=== PATIENT | female | born 1955 | race Caucasian/White ===

== ENCOUNTER 2023-10-25 12:57 | Outpatient (AMB) | payer MEDICARE, SELFPAY ==
[2023-10-25 13:15] VITALS: BP 144/74; PULSE 70; O2SAT 96; BMI 25.0
--- NOTE | 2023-10-25 13:15 | A.OFFVIS_ITS ---
Intake Vital Signs 10/25/23 13:15 Height 5 ft Weight 127 lb 13.89 oz BMI 25.0 BP 144/74 H Blood Pressure Location Lt brachial Position Sitting Pulse 70 Pulse Source Pulse Oximeter Pulse Oximetry (%) 96 Oxygen Delivery Method Room Air Intake Visit Reasons: Cough Allergies No Known Allergies Allergy (Verified 10/25/23 13:18) HPI HPI Comments History of Present Illness Details The patient is here for pulmonary evaluation. The patient is a 68-year-old woman who presents with a chronic cough. The patient states that about 15 years ago when she was living in [place] she was diagnosed with pneumonia. At that time she was having significant respiratory complaints. Ultimately she was treated and had a repeat chest x-ray demonstrating resolution of the pneumonia per the report of the patient. However although her symptoms were better in the actually was better she continued to have a persistent cough. The cough seemed persistent and sometimes would have coughing spells which were be very dramatic. Sometimes she does expectorate specially in the morning. When she does expectorate she notices that the phlegm is thick tenacious sticky and clear. Denies any hemoptysis or denies any color. The patient now co ntinues to have the same complaints and that with the pandemic she is concerned because of her coughing spells and being in public. She has been evaluated by ENT. She did have allergy testing done without any significant findings for upper airway cough syndrome or allergies that she is aware of. She also tried a month of PPI for reflux related cough. The patient did use an inhaler back when she developed pneumonia and that was only briefly and she has not using inhalers since. on examination she does have some limitations during the expiratory phase seems to be more of a upper airway wheeze. Will start with pulmonary function studies and a chest x-ray. If her x-rays abnormal or if it is nondiagnostic the patient will require a CT scan of the chest. In addition to that because of the extent of her cough in the upper airway component to her wheezing could consider a bronchoscopy in the near future. For now will start her on empiric inhalers with inhaled cortical steroids and a long-acting beta agonist in addition to cough suppressants. [facility] Medical History (Updated 10/25/23 @ 22:09 by Poncho Wilson MD) Wheezing Chronic cough Social History (Updated 10/25/23 @ 13:20 by Deborah Styles [facility]) Patient Tobacco Use Status: Never used Tobacco Second Hand Smoke Exposure: No Review of Systems Const Denies fever(s) Eyes Reports no additional complaints ENT Denies change in voice Card Denies chest pain Resp Reports chest congestion and Reports cough GI Reports no additional complaints Reports urinary incontinence Musc Reports no additional complaints Skin/Breast Denies rash Neuro Reports no additional complaints Barrie/Lymph Denies lymphadenopathy Aller/Immun Denies seasonal rhinorrhea Physical Exam Vital Signs: Last Vital Signs Pulse 70 10/25/23 13:15 BP 144/74 H 10/25/23 13:15 Pulse Ox 96 10/25/23 13:15 Oxygen Delivery Method Room Air 10/25/23 13:15 BMI result Body Mass Index 25.0 Const General: comfortable HEENT Head: Yes normocephalic Neck Neck: Yes supple Chest Chest palpation & inspection: normal inspection of the chest Resp Effort & Inspection: Actively coughing Quality: actively coughing Auscultation: wheezes upper bilaterally and diminished lung sounds Cardio Heart sounds: S1 normal heart sound present and S2 normal heart sound present GI Palpation (GI): Soft to palpation Skin General skin exam: no rashes or lesions noted Extrem General: Yes no clubbing, cyanosis or edema Assessment & Plan Assessment & Plan (1) Chronic cough: Code(s): R05.3 - Chronic cough (2) Wheezing: Comment: upper airway Code(s): R06.2 - Wheezing Plan start Symbicort cough suppresant benzonates CXR, consider CT chest PFTs consider barium swallow Consider bronchoscopy if no better Orders: Orders XR chest 2V Today R05.3 - Chronic cough PFT pulmonary function test Today R05.3 - Chronic cough Medications: New codeine-guaifenesin 10-100 mg/5 mL 10 mL PO Q6H 10 days PRN 300 mL 0RF cough budesonide-formoterol 160-4.5 mcg/actuation (Symbicort) 2 puffs inhalation BID 30 days 10.2 grams 11RF J44.89 - Other specified chronic obstructive pulmonary disease benzonatate 200 mg PO BID 30 days PRN 30 caps 4RF cough Coding Level of Care Code New Pt Level 4 (61892) Diagnoses Chronic cough R05.3 Wheezing R06.2 Time Spent (min) 38
== END 2023-10-25 13:56 | disposition home or self-care (01) ==
PROVIDERS: PCP Family Medicine; Referring Provider Family Medicine; Visit Provider Hospitalist
DX: R05.3 Chronic cough (principal); R06.2 Wheezing
CPT/HCPCS: 99204

== ENCOUNTER 2023-10-25 12:57 | Outpatient (REF) | payer MEDICARE, SELFPAY ==
--- NOTE | ~2023-10-25 | XR_ITS ---
EXAMINATION: XR CHEST CLINICAL INFORMATION: Chronic cough COMPARISON: None available. TECHNIQUE: 2 views of the chest were obtained. FINDINGS: Cardiomediastinal silhouette is normal. Lungs are hyperexpanded with flattening of the diaphragms. Mild, chronic-appearing reticular markings. No consolidation, pleural effusion or pneumothorax. No acute osseous abnormalities. XR/XR chest 2V IMPRESSION: No acute cardiopulmonary process. Hyperexpanded lungs suggesting underlying COPD.
== END 2023-10-25 12:58 | disposition home or self-care (01) ==
LOC: HO.XRAY 12:57
PROVIDERS: PCP Family Medicine; Referring Provider Family Medicine; Visit Provider Hospitalist
DX: R05.3 Chronic cough (principal); R06.2 Wheezing
CPT/HCPCS: 71046; 99202

== ENCOUNTER 2023-10-29 08:00 | Outpatient (REF) | payer MEDICARE, SELFPAY ==
--- NOTE | 2023-10-29 14:43 | PFT_ITS ---
Flows: FEV1: 102 % of predicted at 1.93 L FVC: 116 % of predicted at 2.85 L FEV1/FVC: 69 % Bronchodilator response: Absent Volumes: Total lung capacity: 98 % of predicted at 4.21 L Residual volume: 83 % of predicted at 1.40 L Slow vital capacity: 107 % of predicted at 2.81 L Expiratory reserve volume: 142 % of predicted at 0.85 L Diffusion capacity: Normal Impression: Mild obstructive ventilatory defect with no bronchodilator response. MTDD
== END 2023-10-29 08:01 | disposition home or self-care (01) ==
LOC: HO.RESP 08:00
PROVIDERS: PCP Family Medicine; Visit Provider Hospitalist
DX: R05.3 Chronic cough (principal)
CPT/HCPCS: 94010; 94727; 94729

== ENCOUNTER → 2023-10-29 14:43 | Outpatient (BNV) | payer MEDICARE, SELFPAY | PROVIDERS: PCP Family Medicine; Visit Provider Internal Medicine Pulmonary Disease | DX: R05.9 Cough, unspecified (principal) | CPT/HCPCS: 94060; 94727; 94729 ==

== ENCOUNTER 2023-11-29 14:00 | Outpatient (AMB) | payer MEDICARE, SELFPAY ==
[2023-11-29 14:11] VITALS: PULSE 71; O2SAT 98; BMI 24.8
--- NOTE | 2023-11-29 14:11 | A.OFFVIS_ITS ---
Intake Vital Signs 11/29/23 14:11 Height 5 ft Weight 127 lb BMI 24.8 Pulse 71 Pulse Source Pulse Oximeter Pulse Oximetry (%) 98 Oxygen Delivery Method Room Air Intake Visit Reasons: Cough Intern Architect Required: No Allergies No Known Allergies Allergy (Verified 11/29/23 14:13) HPI HPI Comments History of Present Illness Details The patient is a 68-year-old woman who presents with a chronic cough. The patient states that about 15 years ago when she was living in [place] she was diagnosed with pneumonia. At that time she was having significant respiratory complaints. Ultimately she was treated and had a repeat chest x-ray demonstrating resolution of the pneumonia per the report of the patient. However although her symptoms were better in the actually was better she continued to have a persistent cough. The cough seemed persistent and sometimes would have coughing spells which were be very dramatic. Sometimes she does expectorate specially in the morning. When she does expectorate she notices that the phlegm is thick tenacious sticky and clear. Denies any hemoptysis or denies any color. The patient now continues to have the same complaints and that with the pandemic she is concerned because of her coughing spells and being in public. She has been evaluated by ENT. She did have allergy testing done without any significant findings for upper airway cough syndrome or allergies that she is aware of. She also tried a month of PPI for reflux related cough. The patient did use an inhaler back when she developed pneumonia and that was only briefly and she has not using inhalers since. on examination she does have some limitations during the expiratory phase seems to be more of a upper airway wheeze. Will start with pulmonary function studies and a chest x-ray. If her x-rays abnormal or if it is nondiagnostic the patient will require a CT scan of the chest. In addition to that because of the extent of her cough in the upper airway component to her wheezing could consider a bronchoscopy in the near future. For now will start her on empiric inhalers with inhaled cortical steroids and a long-acting beta agonist in addition to cough suppressants. 11/29/2023 the patient is here for a pulmonary follow-up visit. Overall she has doing a little Better. The patient states that the Symbicort has been helpful with wheezing. She is also getting better rest at night with the cough syrup. Ali she is getting some improvement. Although she still has significant productive cough chest congestion typically in the morning. Moderate severity. We did look at her x-ray and she does have some changes consistent with hyperinflation and also some haziness over the right infrahilar area with some silhouetting of the right heart border suggesting component of airspace disease. In addition to that blunting of the left recess. Her PFTs demonstrate a mild obstruction. Therefore, will request a CT scan to better address the abnormal chest x-ray. In the meantime the patient will continue with current respiratory therapy. I did give her a sputum cup in order to try to get a sputum sample. We also talked about potentially considering a bronchoscopy for better evaluation of the airways and deep cultures. Will decide that based on her re sults of the CT scan. In the meantime we talked about sleeping with the head of bed elevated because potentially reflux related cough. She will look into getting risers for the head of the bed. [facility] Medical History (Updated 11/29/23 @ 21:54 by Poncho Wilson MD) Asthma-COPD overlap syndrome Standard chest x-ray abnormal Chronic bronchitis Wheezing Chronic cough Social History (Updated 10/25/23 @ 13:20 by Deborah Styles CMA) Patient Tobacco Use Status: Never used Tobacco Second Hand Smoke Exposure: No Review of Systems Const Denies fever(s) Eyes Reports no additional complaints ENT Denies change in voice Card Denies chest pain Resp Reports chest congestion and Reports cough GI Reports no additional complaints Reports urinary incontinence Musc Reports no additional complaints Skin/Breast Denies rash Neuro Reports no additional complaints Barrie/Lymph Denies lymphadenopathy Aller/Immun Denies seasonal rhinorrhea Physical Exam Vital Signs: Last Vital Signs Pulse 71 11/29/23 14:11 Pulse Ox 98 11/29/23 14:11 Oxygen Delivery Method Room Air 11/29/23 14:11 BMI result Body Mass Index 24.8 Const General: comfortable HEENT Head: Yes normocephalic Neck Neck: Yes supple Chest Chest palpation & inspection: normal inspection of the chest Resp Effort & Inspection: Actively coughing Quality: actively coughing Auscultation: no wheezes and diminished lung sounds Cardio Heart sounds: S1 normal heart sound present and S2 normal heart sound present GI Palpation (GI): Soft to palpation Skin General skin exam: no rashes or lesions noted Extrem General: Yes no clubbing, cyanosis or edema Assessment & Plan Assessment & Plan (1) Chronic cough: Code(s): R05.3 - Chronic cough (2) Standard chest x-ray abnormal: Code(s): R93.89 - Abnormal findings on diagnostic imaging of other specified body structures (3) Asthma-COPD overlap syndrome: Code(s): J44.89 - Other specified chronic obstructive pulmonary disease (4) Chronic bronchitis: Code(s): J42 - Unspecified chronic bronchitis Qualifiers: Chronic bronchitis type: mucopurulent Qualified Code(s): J41.1 - Mucopurulent chronic bronchitis Plan continue Symbicort cough suppresant benzonates CT chest sleep with HOB elevated, risers bloodwork and sputum cx consider barium swallow Consider bronchoscopy if no better F/U 2 months Orders: Orders Complete Blood Count Auto Diff Today J42 - Unspecified chronic bronchitis Immunoglobulin G Subclasses Today J42 - Unspecified chronic bronchitis Immunoglobulin E Today J42 - Unspecified chronic bronchitis Sputum Cult + Gram stain Today J42 - Unspecified chronic bronchitis GEORGE Reflex Titer and Pattern Today J42 - Unspecified chronic bronchitis Acid-fast Culture + Smear Today J42 - Unspecified chronic bronchitis CT chest wo IV con Today J42 - Unspecified chronic bronchitis, R05.3 - Chronic cough, R93.89 - Abnormal findings on diagnostic imaging of other specified body structures Immunoglobulins,IgG IgA IgM Today J42 - Unspecified chronic bronchitis Erythrocyte Sedimentation Rate Today J42 - Unspecified chronic bronchitis Medications: Refilled codeine-guaifenesin 10-100 mg/5 mL 10 mL PO Q6H PRN 300 mL 0RF cough 10 days Coding Level of Care Code Est Pt Level 4 (44699) Diagnoses Chronic cough R05.3 Standard chest x-ray abnormal R93.89 Asthma-COPD overlap syndrome J44.89 Mucopurulent chronic bronchitis J41.1 Chronic bronchitis type: mucopurulent Time Spent (min) 18
== END 2023-11-29 14:39 | disposition home or self-care (01) ==
PROVIDERS: PCP Family Medicine; Visit Provider Hospitalist
DX: R05.3 Chronic cough (principal); R93.89 Abnormal findings on diagnostic imaging of other specified body structures; J44.89 Other specified chronic obstructive pulmonary disease; J41.1 Mucopurulent chronic bronchitis
CPT/HCPCS: 99214

== ENCOUNTER → 2023-11-29 14:00 | Outpatient (BNVA) | payer MEDICARE, SELFPAY | PROVIDERS: PCP Family Medicine; Visit Provider Hospitalist | DX: R05.3 Chronic cough (principal); R93.89 Abnormal findings on diagnostic imaging of other specified body structures; J44.89 Other specified chronic obstructive pulmonary disease; J41.1 Mucopurulent chronic bronchitis | CPT/HCPCS: 99212 ==

== ENCOUNTER 2023-12-02 09:51 | Outpatient (REF) | payer MEDICARE, SELFPAY ==
[2023-12-02 10:15] LABS: MANUAL DIFF FLAG NO
[2023-12-02 10:49] LABS: Basophils Percent Auto 0.7 % (0-2); Eosinophils Absolute Auto 0.1 X10*3/uL (0.0-0.4); Eosinophils Percent Auto 2.3 % (0-4); Hematocrit 43.7 % (37.0-47.0); Hemoglobin 14.9 g/dl (12.0-16.0); Imm Gran Abs Auto 0.01 X10*3/uL (0.00-0.03); Imm Gran Pct Auto 0.2 % (0.0-0.4); Lymphocytes Absolute Auto 1.7 X10*3/uL (1.2-4.9); Lymphocytes Percent Auto 27.3 % (20-40); Mean Corpuscular HGB Conc 34.1 g/dl (31.0-35.0); Mean Corpuscular Volume 85.2 fL (80.0-98.0); Mean Platelet Volume 9.7 fL (9.4-12.3); Monocytes Absolute Auto 0.4 X10*3/uL (0.1-1.2); Monocytes Percent Auto 7.2 % (2-11); Neutrophils Absolute Auto 3.8 x10*3/uL (2.0-8.3); Neutrophils Percent Auto 62.3 % (45-73); Platelet Count 292 X10*3/uL (160-400); Red Blood Count 5.13 X10*6/uL (4.20-5.50); Red Cell Distribution Width 13.1 % (11.0-16.0); White Blood Count 6.1 X10*3/uL (4.8-10.8)
[2023-12-02 11:39] LABS: Erythrocyte Sedimentation Rate 13 MM/HR (0-20)
[2023-12-05 14:58] LABS: Immunoglobulin G Subclass 1 491 mg/dL (382-929); Immunoglobulin G Subclass 2 196 mg/dL (241-700); Immunoglobulin G Subclass 3 31 mg/dL (22-178); Immunoglobulin G Subclass 4 57.1 mg/dL (4-86); Immunoglobulin G Total 840 mg/dL (600-1540)
[2023-12-05 19:39] LABS: Immunoglobulin E 22 kU/L (<OR=114)
[2023-12-05 22:58] LABS: IgA 108 mg/dL (70-320); IgG 974 mg/dL (600-1540); IgM 133 mg/dL (50-300)
[2023-12-09 12:28] LABS: Anti Nuclear Antibody Screen NEGATIVE (NEGATIVE)
== END 2023-12-02 09:52 | disposition home or self-care (01) ==
LOC: HO.LAB 09:51
PROVIDERS: Visit Provider Hospitalist
DX: J42 Unspecified chronic bronchitis (principal)
CPT/HCPCS: 36415; 82784; 82785; 85025; 85652; 86038; 87070; 87116; 87205; 87206

== ENCOUNTER 2023-12-07 | Outpatient (REF) | payer MEDICARE, SELFPAY | END 2023-12-07 00:01 | disposition home or self-care (01) | LOC: HO.LNP | PROVIDERS: Visit Provider Hospitalist | DX: J41.1 Mucopurulent chronic bronchitis (principal) | CPT/HCPCS: 87116; 87206 ==

== ENCOUNTER 2023-12-27 07:22 | Outpatient (REF) | payer MEDICARE, SELFPAY ==
--- NOTE | ~2023-12-27 | CT_ITS ---
EXAMINATION: CT CHEST WITHOUT CONTRAST CLINICAL INFORMATION: Chronic cough/bronchitis COMPARISON: Chest x-ray 10/25/2023 TECHNIQUE: Multidetector volumetric CT imaging of the chest was done. Axial MIP volume rendering provided. Sagittal and coronal reformatted images were obtained. This CT examination was performed using dose optimization techniques as appropriate, variously including the following: *Automated exposure control *Adjustment of mA and/or kV according to patient size (this includes techniques or standardized protocols for targeted exams where dose is matched to indication/reason for exam; i.e. extremities or head) *Use of iterative reconstruction technique DLP: 95 mGy-cm FINDINGS: Central airways are patent. Lungs are well aerated. There is some mild lingular and right middle lobe atelectasis versus scarring. Some minimal dependent atelectasis is also appreciated. There is no lobar consolidation present. No pleural effusion or pneumothorax. No suspicious pulmonary nodules. The heart is normal in size. There is no pericardial effusion. No appreciable coronary artery calcifications. Normal caliber thoracic aorta. No gross mediastinal or hilar lymphadenopathy appreciated on today's noncontrast imaging. No pathologically enlarged axillary lymph nodes. Visualized portions of the upper abdomen demonstrate a 1.8 cm left adrenal lesion, nonspecific. Mild diffuse degenerative changes of the spine. CT/CT chest wo IV con IMPRESSION: 1. Well aerated lungs without lobar consolidation, pleural effusion or pneumothorax. 2. 1.8 cm left adrenal lesion, nonspecific. This can be further evaluated with adrenal protocol CT imaging as clinically indicated. Fleischner guidelines were followed.
== END 2023-12-27 07:23 | disposition home or self-care (01) ==
LOC: HO.CT 07:22
PROVIDERS: PCP Family Medicine; Visit Provider Hospitalist
DX: R93.89 Abnormal findings on diagnostic imaging of other specified body structures (principal); R05.3 Chronic cough; J42 Unspecified chronic bronchitis
CPT/HCPCS: 71250

== ENCOUNTER 2024-01-19 10:31 | Outpatient (AMB) | payer MEDICARE, SELFPAY ==
--- NOTE | 2024-01-19 10:43 | MHC.OFFVIS ---
Intake Vital Signs 01/19/24 10:44 Height 5 ft Weight 127 lb BMI 24.8 BP 110/70 Blood Pressure Location Lt brachial Position Sitting Pulse 66 Pulse Source Pulse Oximeter Pulse Oximetry (%) 96 Oxygen Delivery Method Room Air Intake Visit Reasons: Cough Traffic Technician Required: No Allergies No Known Allergies Allergy (Verified 01/19/24 10:46) HPI HPI Comments History of Present Illness Details The patient is a 68-year-old woman who presents with a chronic cough. The patient states that about 15 years ago when she was living in [place] she was diagnosed with pneumonia. At that time she was having significant respiratory complaints. Ultimately she was treated and had a repeat chest x-ray demonstrating resolution of the pneumonia per the report of the patient. However although her symptoms were better in the actually was better she continued to have a persistent cough. The cough seemed persistent and sometimes would have coughing spells which were be very dramatic. Sometimes she does expectorate specially in the morning. When she does expectorate she notices that the phlegm is thick tenacious sticky and clear. Denies any hemoptysis or denies any color. The patient now continues to have the same complaints and that with the pandemic she is concerned because of her coughing spells and being in public. She has been evaluated by ENT. She did have allergy testing done without any significant findings for upper airway cough syndrome or allergies that she is aware of. She also tried a month of PPI for reflux related cough. The patient did use an inhaler back when she developed pneumonia and that was only briefly and she has not using inhalers since. on examination she does have some limitations during the expiratory phase seems to be more of a upper airway wheeze. Will start with pulmonary function studies and a chest x-ray. If her x-rays abnormal or if it is nondiagnostic the patient will require a CT scan of the chest. In addition to that because of the extent of her cough in the upper airway component to her wheezing could consider a bronchoscopy in the near future. For now will start her on empiric inhalers with inhaled cortical steroids and a long-acting beta agonist in addition to cough suppressants. 11/29/2023 the patient is here for a pulmonary follow-up visit. Overall she has doing a little Better. The patient states that the Symbicort has been helpful with wheezing. She is also getting better rest at night with the cough syrup. Ali she is getting some improvement. Although she still has significant productive cough chest congestion typically in the morning. Moderate severity. We did look at her x-ray and she does have some changes consistent with hyperinflation and also some haziness over the right infrahilar area with some silhouetting of the right heart border suggesting component of airspace disease. In addition to that blunting of the left recess. Her PFTs demonstrate a mild obstruction. Therefore, will request a CT scan to better address the abnormal chest x-ray. In the meantime the patient will continue with current respiratory therapy. I did give her a sputum cup in order to try to get a sputum sample. We also talked about potentially considering a bronchoscopy for better evaluation of the airways and deep cultures. Will decide that based on her results of the CT scan. In the meantime we talked about sleeping with the head of bed elevated because potentially reflux related cough. She will look into getting risers for the head of the bed. 01/19/2024 the patient is here for a pulmonary follow-up visit. She is still coughing. She is concerned because she has no better. Still having productive phlegm prickly whitish in color. Sometimes [place]. She did try the risers for the bad sleep elevated but is not making much difference. The Symbicort is partially helpful. She does complaint of some chest tightness. She did not have a great response to bronchodilators. She has never been a smoker although she appears to have mild degree of COPD. Definitely feels it. We did review her CT scan of the chest. 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 She is following up in [place] with the doctor there regarding both apparent periodic in the adrenal lesion. Though appeared to be beyond. The patient also had blood work which pretty reassuring. No significant eosinophilia and immune system to be reasonable. Her IgG subclass 2 is a little low but her total levels are good and should not be resulting in recurrent infections. The patient does have some atelectasis the right middle lobe and lingula suggesting the possibility of smoldering diseases though. At this point will try to do is optimize her respiratory therapy by adding Spiriva to her Symbicort. In addition to that we can also consider nebulizer in the future to see if that provides better chest PT and mucus clearance. Also be reasonable to try her on azithromycin for 6-8 weeks to see if we can help with chronic bronchitis. I did provide her with a sputum cup in order for her to bring up sputum sample. And will consider bronchoscopy if no better. [facility] Medical History (Updated 11/29/23 @ 21:54 by Poncho Wilson MD) Asthma-COPD overlap syndrome Standard chest x-ray abnormal Chronic bronchitis Wheezing Chronic cough Social History (Updated 10/25/23 @ 13:20 by Deborah Styles CMA) Patient Tobacco Use Status: Never used Tobacco Second Hand Smoke Exposure: No Review of Systems Const Denies fever(s) Eyes Reports no additional complaints ENT Denies change in voice Card Denies chest pain Resp Reports chest congestion and Reports cough GI Reports no additional complaints Reports urinary incontinence Musc Reports no additional complaints Skin/Breast Denies rash Neuro Reports no additional complaints Barrie/Lymph Denies lymphadenopathy Aller/Immun Denies seasonal rhinorrhea Physical Exam Vital Signs: Last Vital Signs Pulse 66 01/19/24 10:44 BP 110/70 01/19/24 10:44 Pulse Ox 96 01/19/24 10:44 Oxygen Delivery Method Room Air 01/19/24 10:44 BMI result Body Mass Index 24.8 Const General: comfortable HEENT Head: Yes normocephalic Neck Neck: Yes supple Chest Chest palpation & inspection: normal inspection of the chest Resp Effort & Inspection: Actively coughing Quality: actively coughing and prolonged expiratory phase Auscultation: wheezes and diminished lung sounds Cardio Heart sounds: S1 normal heart sound present and S2 normal heart sound present GI Palpation (GI): Soft to palpation Skin General skin exam: no rashes or lesions noted Extrem General: Yes no clubbing, cyanosis or edema Assessment & Plan Assessment & Plan (1) Chronic cough: Code(s): R05.3 - Chronic cough (2) Standard chest x-ray abnormal: Code(s): R93.89 - Abnormal findings on diagnostic imaging of other specified body structures (3) Asthma-COPD overlap syndrome: Code(s): J44.89 - Other specified chronic obstructive pulmonary disease (4) Chronic bronchitis: Code(s): J42 - Unspecified chronic bronchitis Qualifiers: Chronic bronchitis type: mucopurulent Qualified Code(s): J41.1 - Mucopurulent chronic bronchitis Plan continue Symbicort start Spiriva start Azithromycin MWF x 6-8 weeks cough suppresant benzonates sleep with HOB elevated, risers sputum cx consider barium swallow Consider bronchoscopy if no better F/U 2-3 months Orders: Orders Sputum Cult + Gram stain Today J41.1 - Mucopurulent chronic bronchitis Acid-fast Culture + Smear Today J41.1 - Mucopurulent chronic bronchitis Medications: New azithromycin Take 1 tablet on Tuesday/Tuesday/Tuesday 250 mg PO 3XW 28 days 12 tabs 1RF K21.9 - Gastro-esophageal reflux disease without esophagitis tiotropium bromide 2.5 mcg/actuation (Spiriva Respimat) 2 puffs inhalation DAILY 30 days 1 ea 11RF Coding Level of Care Code Est Pt Level 4 (14589) Diagnoses Chronic cough R05.3 Standard chest x-ray abnormal R93.89 Asthma-COPD overlap syndrome J44.89 Mucopurulent chronic bronchitis J41.1 Chronic bronchitis type: mucopurulent Time Spent (min) 18
[2024-01-19 10:44] VITALS: BP 110/70; PULSE 66; O2SAT 96; BMI 24.8
== END 2024-01-19 11:16 | disposition home or self-care (01) ==
PROVIDERS: PCP Family Medicine; Visit Provider Hospitalist
DX: R05.3 Chronic cough (principal); R93.89 Abnormal findings on diagnostic imaging of other specified body structures; J44.89 Other specified chronic obstructive pulmonary disease
CPT/HCPCS: 99214

== ENCOUNTER → 2024-01-19 10:31 | Outpatient (BNVA) | payer MEDICARE, SELFPAY | PROVIDERS: PCP Family Medicine; Visit Provider Hospitalist | DX: J44.89 Other specified chronic obstructive pulmonary disease (principal); R05.3 Chronic cough; R93.89 Abnormal findings on diagnostic imaging of other specified body structures; J41.1 Mucopurulent chronic bronchitis | CPT/HCPCS: 99212 ==

== ENCOUNTER 2024-05-01 09:47 | Outpatient (AMB) | payer MEDICARE, SELFPAY ==
--- NOTE | 2024-05-01 10:10 | A.OFFVIS_ITS ---
Vital Signs 05/01/24 10:11 Height 5 ft Weight 125 lb BMI 24.4 BP 118/70 Blood Pressure Location Lt brachial Position Sitting Pulse 71 Pulse Source Pulse Oximeter Pulse Oximetry (%) 97 Oxygen Delivery Method Room Air Intake Visit Reasons: Cough Home Health Care Provider Required: No Allergies No Known Allergies Allergy (Verified 05/01/24 10:13) HPI Comments Details: The patient is a 68-year-old woman who presents with a chronic cough. The patient states that about 15 years ago when she was living in [place] she was diagnosed with pneumonia. At that time she was having significant respiratory complaints. Ultimately she was treated and had a repeat chest x-ray demonstrating resolution of the pneumonia per the report of the patient. However although her symptoms were better in the actually was better she continued to have a persistent cough. The cough seemed persistent and sometimes would have coughing spells which were be very dramatic. Sometimes she does expectorate specially in the morning. When she does expectorate she notices that the phlegm is thick tenacious sticky and clear. Denies any hemoptysis or denies any color. The patient now continues to have the same complaints and that with the pandemic she is concerned because of her coughing spells and being in public. She has been evaluated by ENT. She did have allergy testing done without any significant findings for upper airway cough syndrome or allergies that she is aware of. She also tried a month of PPI for reflux related cough. The patient did use an inhaler back when she developed pneumonia and that was only briefly and she has not using inhalers since. on examination she does have some limitations during the expiratory phase seems to be more of a upper airway wheeze. Will start with pulmonary function studies and a chest x-ray. If her x-rays abnormal or if it is nondiagnostic the patient will require a CT scan of the chest. In addition to that because of the extent of her cough in the upper airway component to her wheezing could consider a bronchoscopy in the near future. For now will start her on empiric inhalers with inhaled cortical steroids and a long-acting beta agonist in addition to cough suppressants. 11/29/2023 the patient is here for a pulmonary follow-up visit. Overall she has doing a little Better. The patient states that the Symbicort has been helpful with wheezing. She is also getting better rest at night with the cough syrup. Ali she is getting some improvement. Although she still has significant productive cough chest congestion typically in the morning. Moderate severity. We did look at her x-ray and she does have some changes consistent with hyperinflation and also some haziness over the right infrahilar area with some silhouetting of the right heart border suggesting component of airspace disease. In addition to that blunting of the left recess. Her PFTs demonstrate a mild obstruction. Therefore, will request a CT scan to better address the abnormal chest x-ray. In the meantime the patient will continue with current respiratory therapy. I did give her a sputum cup in order to try to get a sputum sample. We also talked about potentially considering a bronchoscopy for better evaluation of the airways and deep cultures. Will decide that based on her results of the CT scan. In the meantime we talked about sleeping with the head of bed elevated because potentially reflux related cough. She will look into getting risers for the head of the bed. 01/19/2024 the patient is here for a pulmonary follow-up visit. She is still coughing. She is concerned because she has no better. Still having productive phlegm prickly whitish in color. Sometimes [place]. She did try the risers for the bad sleep elevated but is not making much difference. The Symbicort is partially helpful. She does complaint of some chest tightness. She did not have a great response to bronchodilators. She has never been a smoker although she appears to have mild degree of COPD. Definitely feels it. We did review her CT scan of the chest. 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 She is following up in [place] with the doctor there regarding both apparent periodic in the adrenal lesion. Though appeared to be beyond. The patient also had blood work which pretty reassuring. No significant eosinophilia and immune system to be reasonable. Her IgG subclass 2 is a little low but her total levels are good and should not be resulting in recurrent infections. The patient does have some atelectasis the right middle lobe and lingula suggesting the possibility of smoldering diseases though. At this point will try to do is optimize her respiratory therapy by adding Spiriva to her Symbicort. In addition to that we can also consider nebulizer in the future to see if that provides better chest PT and mucus clearance. Also be reasonable to try her on azithromycin for 6-8 weeks to see if we can help with chronic bronchitis. I did provide her with a sputum cup in order for her to bring up sputum sample. And will consider bronchoscopy if no better. 05/01/2024 the patient is here for a pulmonary follow-up visit. Overall she is doing better. This combination has Symbicort and Spiriva have been helping her. The secretions in the lungs have subsided significantly. Although she still having coughing episodes moderate severity. Typically worse at nighttime. She has a hard time with shortness of breath and chest tightness and pressure sensation. Which is moderate severity. That is usually when she coughs and she relieves some of the pressure. Her CT scan of the chest that she had in the spring 2023 was reassuring without any evidence of any mosaic pattern. Still though she does have some wheezing on examination. Will plan to perform bronchoscopy to better assess the airways. Look for any obstructive physiology in addition to assessing for inflammation. The patient also be a candidate for Daliresp or potentially biologic therapy with test prior. Will do the bron choscopy and have him forward. PENDING SALE TO [facility] Medical History (Updated 11/29/23 @ 21:54 by Poncho Wilson MD) Asthma-COPD overlap syndrome Standard chest x-ray abnormal Chronic bronchitis Wheezing Chronic cough Social History (Updated 10/25/23 @ 13:20 by Deborah Styles CMA) Patient Tobacco Use Status: Never used Tobacco Second Hand Smoke Exposure: No Review of Systems Const Denies fever(s) Eyes Reports no additional complaints ENT Denies change in voice Card Denies chest pain Resp Reports chest congestion and Reports cough GI Reports no additional complaints Reports urinary incontinence Musc Reports no additional complaints Skin/Breast Denies rash Neuro Reports no additional complaints Barrie/Lymph Denies lymphadenopathy Aller/Immun Denies seasonal rhinorrhea Physical Exam Vital Signs: Last Vital Signs Pulse 71 05/01/24 10:11 BP 118/70 05/01/24 10:11 Pulse Ox 97 05/01/24 10:11 Oxygen Delivery Method Room Air 05/01/24 10:11 BMI result Body Mass Index 24.4 Const General: comfortable HEENT Head: Yes normocephalic Neck Neck: Yes supple Chest Chest palpation & inspection: normal inspection of the chest Resp Effort & Inspection: Actively coughing Quality: actively coughing and prolonged expiratory phase Auscultation: wheezes and diminished lung sounds Cardio Heart sounds: S1 normal heart sound present and S2 normal heart sound present GI Palpation (GI): Soft to palpation Skin General skin exam: no rashes or lesions noted Extrem General: Yes no clubbing, cyanosis or edema Assessment & Plan Assessment & Plan (1) Chronic cough: Code(s): R05.3 - Chronic cough Category: Medical (2) Standard chest x-ray abnormal: Code(s): R93.89 - Abnormal findings on diagnostic imaging of other specified body structures Category: Medical (3) Asthma-COPD overlap syndrome: Code(s): J44.89 - Other specified chronic obstructive pulmonary disease Category: Medical (4) Chronic bronchitis: Code(s): J42 - Unspecified chronic bronchitis Category: Medical Qualifiers: Chronic bronchitis type: mucopurulent Qualified Code(s): J41.1 - Mucopurulent chronic bronchitis Plan continue Symbicort continue Spiriva stopped Azithromycin MWF x 6-8 weeks cough suppresant benzonates sleep with HOB elevated, risers bronchoscopy to assess airway inflammation and obstruction consider barium swallow F/U 2-3 months Coding Level of Care Code Est Pt Level 4 (75075) Diagnoses Chronic cough R05.3 Standard chest x-ray abnormal R93.89 Asthma-COPD overlap syndrome J44.89 Mucopurulent chronic bronchitis J41.1 Chronic bronchitis type: mucopurulent Time Spent (min) 16
[2024-05-01 10:11] VITALS: BP 118/70; PULSE 71; O2SAT 97; BMI 24.4
== END 2024-05-01 10:37 | disposition home or self-care (01) ==
PROVIDERS: PCP Family Medicine; Visit Provider Hospitalist
DX: R05.3 Chronic cough (principal); R93.89 Abnormal findings on diagnostic imaging of other specified body structures; J44.89 Other specified chronic obstructive pulmonary disease; J41.1 Mucopurulent chronic bronchitis
CPT/HCPCS: 99214

== ENCOUNTER → 2024-05-01 09:47 | Outpatient (BNVA) | payer MEDICARE, SELFPAY | PROVIDERS: PCP Family Medicine; Visit Provider Hospitalist | DX: R05.3 Chronic cough (principal); J41.1 Mucopurulent chronic bronchitis; J44.89 Other specified chronic obstructive pulmonary disease; R93.89 Abnormal findings on diagnostic imaging of other specified body structures | CPT/HCPCS: 99212 ==

== ENCOUNTER 2024-06-08 11:22 | Day surgery (SDC) | payer MEDICARE, SELFPAY ==
--- NOTE | 2024-06-07 10:12 | HO.ANESPROP2 ---
Documented by User: Oralia Epstein NP 06/07/24 10:12 HPI - Anesthesia Eval Consult details Narrative: 68yo F for Bronchoscopy Fiberoptic PMFSH Active Problems Active Problems: All Active Problems Asthma-COPD overlap syndrome (Acute) Standard chest x-ray abnormal (Acute) Chronic bronchitis (Acute) Wheezing (Acute) Chronic cough (Acute) Past Medical History Medical History Asthma-COPD overlap syndrome Standard chest x-ray abnormal Chronic bronchitis Wheezing Chronic cough Social History Social History Patient Tobacco Use Status: Never used Tobacco Second Hand Smoke Exposure: No Advance Directives: No Advance Directives Information Provided: Yes Meds Allergies Allergy/AdvReac Type Severity Reaction Status Date / Time No Known Allergies Allergy Verified 05/01/24 10:13 Home Medications ?Medication ?Instructions ?Recorded ?Confirmed ?Last Taken ?Type calcium carbonate 600 mg-vitamin 1 tab PO DAILY 10/25/23 Unknown History D3 10 mcg (400 unit) tablet methenamine hippurate 1 gram tablet 1 g PO BID 10/25/23 Unknown History simvastatin 20 mg tablet 20 mg PO BEDTIME 10/25/23 Unknown History rizatriptan 10 mg tablet mg PO PRN 05/01/24 Unknown History Assessment and Plan Assessment Anesthesia Assessment: Chart Reviewed Documented by User: Di Brennan MD 06/08/24 12:48 PMFSH Past Medical History Medical History Asthma-COPD overlap syndrome Standard chest x-ray abnormal Chronic bronchitis Wheezing Chronic cough Family History Family history of problems with anesthesia: No Surgical History History of Problems with Anesthesia: No Social History Social History Patient Tobacco Use Status: Never used Tobacco Second Hand Smoke Exposure: No Advance Directives: No Advance Directives Information Provided: Yes Meds Allergies Allergy/AdvReac Type Severity Reaction Status Date / Time No Known Allergies Allergy Verified 05/01/24 10:13 Home Medications ?Medication ?Instructions ?Recorded ?Confirmed ?Last Taken ?Type calcium carbonate 600 mg-vitamin 1 tab PO DAILY 10/25/23 Unknown History D3 10 mcg (400 unit) tablet methenamine hippurate 1 gram tablet 1 g PO BID 10/25/23 Unknown History simvastatin 20 mg tablet 20 mg PO BEDTIME 10/25/23 Unknown History rizatriptan 10 mg tablet mg PO PRN 05/01/24 Unknown History Exam Airway Mallampati Class: II TM Dist: >3cm Neck ROM: Full Heart: rrr Lungs: cta Assessment and Plan Assessment Anesthesia Assessment: Anesthesia Plan Discussed Final Anesthetic Review Family History of Problems with Anesthesia: No History of Problems with Anesthesia: No NPO: Yes ASA Class: II Final Preanesthetic Review: No Changes in Pt Med Stat, Meds/Allgs Chart Reviewed, Consent Obtained/Reviewed and Anes Risks/Benef Reviewed Patient Risk: Intermediate Procedure Risk: Low Anesthetic Plan Anesthetic Plan: GA Disposition: Standard PACU
--- NOTE | 2024-06-08 12:19 | MHC.SHP ---
Pre-Procedural Eval Section A - 24 Hr Update-Section A only Date of Service: 06/08/24 The patient is an INPATIENT: No Changes since office visit: No Cold of Flu in the past 2 weeks, No New Medical Problems, No Changes in Medication and No Patient answered all questions The patient has been examined within 24 hours of the surgical procedure. The History & Physical has been completed within 30 days and I have reviewed it.: Yes Section B - Complete if H&P > 30 days Chief Complaint: Chronic cough Allergies: Allergies Allergy/AdvReac Type Severity Reaction Status Date / Time No Known Allergies Allergy Verified 05/01/24 10:13 Plan I have reviewed the history and physical and performed a pertinent physical examination on my patient. No changes have occurred unless specified. Time Spent With Patient Time: Total time managing care of this patient today ____ minutes.
[2024-06-08 13:07] VITALS: BP 132/68; PULSE 70; RESP 12; TEMP 36.3; O2SAT 96; BMI 23.6
[2024-06-08] MEDS: Lactated Ringers 1,000 ML 100 ML IVCONT (13:19)
[2024-06-08 14:25] VITALS: BP 140/73; PULSE 85; RESP 16; TEMP 36.6; O2SAT 97
[2024-06-08 14:30] VITALS: BP 152/56; PULSE 97; RESP 20; O2SAT 97
[2024-06-08 14:35] VITALS: BP 149/72; PULSE 80; RESP 20; O2SAT 97
[2024-06-08 14:40] VITALS: BP 146/66; PULSE 78; RESP 20; O2SAT 97
[2024-06-08 14:55] VITALS: BP 141/91; PULSE 85; RESP 20; TEMP 37; O2SAT 94
[2024-06-08 18:45] LABS: Neutrophils Bronchial 1 %
[2024-06-08 18:46] LABS: Lymphocytes Bronchial 16 %; Other Bronchial 83 %
[2024-06-08 18:47] LABS: RBC Bronchial Washing 5 MM*3; WBC Bronchial Washing 6 MM*3
--- NOTE | 2024-06-12 08:13 | P.BOP_ITS ---
Brief Operative Note Date of Service: 06/08/24 Pre-op diagnosis: cough Post-op diagnosis: other (bronchomalecia) Procedure: bronchoscopy with BAL and washings Implants: Surgeon: Poncho Wilson MD Anesthesia: GLMA Was an Rep[employer] used for this Procedure?: No Estimated blood loss (mL): 0 Pathology: none sent Condition: stable Disposition: same day
--- NOTE | 2024-06-12 09:52 | OP_ITS ---
DATE OF SERVICE: 06/08/2024 SURGEON: Poncho Wilson MD PREOPERATIVE DIAGNOSIS: Chronic cough. POSTOPERATIVE DIAGNOSIS: Bronchomalacia. PROCEDURE PERFORMED: Bronchoscopy with BAL and washings. ESTIMATED BLOOD LOSS: COMPLICATIONS: ANESTHESIA: LMA. ASSISTANTS: None. SPECIMENS: DESCRIPTION OF PROCEDURE: After the patient was adequately sedated, LMA in place, a flexible digital bronchoscope was inserted to the LMA to the level of the larynx. The vocal cords were most symmetric with the midline and there was some other risk of micro aspirations. No lesions noted. After instilling additional lidocaine the bronchoscope was then passed to the vocal cords to the level of the trachea. Tracheal mucosa appeared normal. No evidence of any obstructions or compression of the airway, just some slight compression of the proximal trachea, but only about 20% to 25%. The bronchoscope was then navigated through the entire tracheobronchial tree that was examined up the subsegmental level. No evidence of any endobronchial lesions or masses. No evidence of any significant secretions. No bleeding although there was significant malacia of the airways primarily at the level of the distal left mainstem where there was complete obstruction of the left lower lobe airway. The patient had some degree of bronchomalacia through the right bronchi as well, left more than right. The bronchoscope was navigated to the right middle lobe where a bronchoalveolar lavage was completed with 50 mL of normal saline. The return was close to 25 mL. There were some mucous plugs present. The bronchoscope was then navigated to the entire tracheobronchial tree. Again, significant malacia noted in the lower lung zones. No evidence of any active bleeding. No evidence of any endobronchial lesions. Bronchial washings were collected bilaterally. The bronchoscope was then removed. No complications noted. Poncho Wilson MD MR/MODL / [id number]
== END 2024-06-08 15:31 | disposition home or self-care (01) ==
PROVIDERS: PCP Family Medicine; Visit Provider Hospitalist
PROC: 0BJ08ZZ Inspection of Tracheobronchial Tree, Via Natural or Artificial Opening Endoscopic (ICD-10-PCS; CPT 31622; principal; 2024-06-08 13:10)
DX: R05.3 Chronic cough (principal); J42 Unspecified chronic bronchitis; J98.09 Other diseases of bronchus, not elsewhere classified; J45.909 Unspecified asthma, uncomplicated; Z79.899 Other long term (current) drug therapy
CPT/HCPCS: 31624; 87070; 87077; 87116; 87185; 87205; 87206; 88112; 89051; J0171; J2405; J2704; J3010

== ENCOUNTER → 2024-06-08 11:22 | Outpatient (BNV) | payer MEDICARE, SELFPAY | PROVIDERS: PCP Family Medicine; Visit Provider Hospitalist | DX: R05.3 Chronic cough (principal); J98.09 Other diseases of bronchus, not elsewhere classified | CPT/HCPCS: 31624 ==

== ENCOUNTER 2024-06-29 10:40 | Outpatient (AMB) | payer MEDICARE, SELFPAY ==
--- NOTE | 2024-06-29 10:48 | MHC.OFFVIS ---
Vital Signs 06/29/24 10:50 Height 5 ft Weight 125 lb BMI 24.4 BP 126/70 Blood Pressure Location Lt brachial Position Sitting Pulse 62 Pulse Source Pulse Oximeter Pulse Oximetry (%) 98 Oxygen Delivery Method Room Air Intake Visit Reasons: Cough Chief Science Officer Required: No Allergies No Known Allergies Allergy (Verified 06/29/24 10:52) HPI Comments Details: The patient is a 68-year-old woman who presents with a chronic cough. The patient states that about 15 years ago when she was living in [place] she was diagnosed with pneumonia. At that time she was having significant respiratory complaints. Ultimately she was treated and had a repeat chest x-ray demonstrating resolution of the pneumonia per the report of the patient. However although her symptoms were better in the actually was better she continued to have a persistent cough. The cough seemed persistent and sometimes would have coughing spells which were be very dramatic. Sometimes she does expectorate specially in the morning. When she does expectorate she notices that the phlegm is thick tenacious sticky and clear. Denies any hemoptysis or denies any color. The patient now continues to have the same complaints and that with the pandemic she is concerned because of her coughing spells and being in public. She has been evaluated by ENT. She did have allergy testing done without any significant findings for upper airway cough syndrome or allergies that she is aware of. She also tried a month of PPI for reflux related cough. The patient did use an inhaler back when she developed pneumonia and that was only briefly and she has not using inhalers since. on examination she does have some limitations during the expiratory phase seems to be more of a upper airway wheeze. Will start with pulmonary function studies and a chest x-ray. If her x-rays abnormal or if it is nondiagnostic the patient will require a CT scan of the chest. In addition to that because of the extent of her cough in the upper airway component to her wheezing could consider a bronchoscopy in the near future. For now will start her on empiric inhalers with inhaled cortical steroids and a long-acting beta agonist in addition to cough suppressants. 11/29/2023 the patient is here for a pulmonary follow-up visit. Overall she has doing a little Better. The patient states that the Symbicort has been helpful with wheezing. She is also getting better rest at night with the cough syrup. Ali she is getting some improvement. Although she still has significant productive cough chest congestion typically in the morning. Moderate severity. We did look at her x-ray and she does have some changes consistent with hyperinflation and also some haziness over the right infrahilar area with some silhouetting of the right heart border suggesting component of airspace disease. In addition to that blunting of the left recess. Her PFTs demonstrate a mild obstruction. Therefore, will request a CT scan to better address the abnormal chest x-ray. In the meantime the patient will continue with current respiratory therapy. I did give her a sputum cup in order to try to get a sputum sample. We also talked about potentially considering a bronchoscopy for better evaluation of the airways and deep cultures. Will decide that based on her results of the CT scan. In the meantime we talked about sleeping with the head of bed elevated because potentially reflux related cough. She will look into getting risers for the head of the bed. 01/19/2024 the patient is here for a pulmonary follow-up visit. She is still coughing. She is concerned because she has no better. Still having productive phlegm prickly whitish in color. Sometimes [place]. She did try the risers for the bad sleep elevated but is not making much difference. The Symbicort is partially helpful. She does complaint of some chest tightness. She did not have a great response to bronchodilators. She has never been a smoker although she appears to have mild degree of COPD. Definitely feels it. We did review her CT scan of the chest. 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 She is following up in [place] with the doctor there regarding both apparent periodic in the adrenal lesion. Though appeared to be beyond. The patient also had blood work which pretty reassuring. No significant eosinophilia and immune system to be reasonable. Her IgG subclass 2 is a little low but her total levels are good and should not be resulting in recurrent infections. The patient does have some atelectasis the right middle lobe and lingula suggesting the possibility of smoldering diseases though. At this point will try to do is optimize her respiratory therapy by adding Spiriva to her Symbicort. In addition to that we can also consider nebulizer in the future to see if that provides better chest PT and mucus clearance. Also be reasonable to try her on azithromycin for 6-8 weeks to see if we can help with chronic bronchitis. I did provide her with a sputum cup in order for her to bring up sputum sample. And will consider bronchoscopy if no better. 05/01/2024 the patient is here for a pulmonary follow-up visit. Overall she is doing better. This combination has Symbicort and Spiriva have been helping her. The secretions in the lungs have subsided significantly. Although she still having coughing episodes moderate severity. Typically worse at nighttime. She has a hard time with shortness of breath and chest tightness and pressure sensation. Which is moderate severity. That is usually when she coughs and she relieves some of the pressure. Her CT scan of the chest that she had in the spring 2023 was reassuring without any evidence of any mosaic pattern. Still though she does have some wheezing on examination. Will plan to perform bronchoscopy to better assess the airways. Look for any obstructive physiology in addition to assessing for inflammation. The patient also be a candidate for Daliresp or potentially biologic therapy with test prior. Will do the bronchoscopy and have him forward. 06/29/2024 the patient is here for pulmonary follow-up visit. The patient is status post bronchoscopy. She tolerated the procedure well. I did review the results with her. We did have a video to look at. It appears that she does have some dynamic collapse of the left lower lobe. 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 It is dynamic in nature so does open up. We did talk about bed different mucus clearance. The patient did get an Acapella valve and therefore she can work on chest physical therapy. We also cultured Haemophilus parainfluenza she was treated with antibiotics for that. She is still completing a course. She continues with current respiratory therapy. She is going to continue with exercises to strengthen her lung capacity. [facility] Medical History (Updated 07/01/24 @ 20:39 by Poncho Wilson MD) Bronchomalacia Asthma-COPD overlap syndrome Standard chest x-ray abnormal Chronic bronchitis Wheezing Chronic cough Surgical History (Updated 06/08/24 @ 12:55 by Rhona Ba RN) H/O colonoscopy History of foot surgery History of tonsillectomy H/O bladder repair surgery H/O hemorrhoidectomy Hx of appendectomy Social History Are you a primary ocular care technologist to a significant other at home: No Do you presently have visiting nurse or other home services: No Patient Tobacco Use Status: Never used Tobacco Second Hand Smoke Exposure: No Review of Systems Const Denies fever(s) Eyes Reports no additional complaints ENT Denies change in voice Card Denies chest pain Resp Reports chest congestion and Reports cough GI Reports no additional complaints Reports urinary incontinence Musc Reports no additional complaints Skin/Breast Denies rash Neuro Reports no additional complaints Barrie/Lymph Denies lymphadenopathy Aller/Immun Denies seasonal rhinorrhea Physical Exam Vital Signs: Last Vital Signs Pulse 62 06/29/24 10:50 BP 126/70 06/29/24 10:50 Pulse Ox 98 06/29/24 10:50 Oxygen Delivery Method Room Air 06/29/24 10:50 BMI result Body Mass Index 24.4 Const General: comfortable HEENT Head: Yes normocephalic Neck Neck: Yes supple Chest Chest palpation & inspection: normal inspection of the chest Resp Effort & Inspection: Actively coughing Quality: actively coughing and prolonged expiratory phase Auscultation: wheezes and diminished lung sounds Cardio Heart sounds: S1 normal heart sound present and S2 normal heart sound present GI Palpation (GI): Soft to palpation Skin General skin exam: no rashes or lesions noted Extrem General: Yes no clubbing, cyanosis or edema Assessment & Plan Assessment & Plan (1) Chronic cough: Code(s): R05.3 - Chronic cough Category: Medical (2) Asthma-COPD overlap syndrome: Code(s): J44.89 - Other specified chronic obstructive pulmonary disease Category: Medical (3) Chronic bronchitis: Code(s): J42 - Unspecified chronic bronchitis Category: Medical Qualifiers: Chronic bronchitis type: mucopurulent Qualified Code(s): J41.1 - Mucopurulent chronic bronchitis (4) Bronchomalacia: Code(s): J98.09 - Other diseases of bronchus, not elsewhere classified Category: Medical Plan continue Symbicort continue Spiriva complete Azithromycin MWF Aerobika for chest physical therapy benzonates sleep with HOB elevated, risers consider barium swallow F/U 4-6 months Coding Level of Care Code Est Pt Level 4 (34693) Diagnoses Chronic cough R05.3 Asthma-COPD overlap syndrome J44.89 Mucopurulent chronic bronchitis J41.1 Chronic bronchitis type: mucopurulent Bronchomalacia J98.09 Time Spent (min) 17
[2024-06-29 10:50] VITALS: BP 126/70; PULSE 62; O2SAT 98; BMI 24.4
== END 2024-06-29 11:15 | disposition home or self-care (01) ==
PROVIDERS: PCP Family Medicine; Visit Provider Hospitalist
DX: J44.89 Other specified chronic obstructive pulmonary disease (principal); J98.09 Other diseases of bronchus, not elsewhere classified
CPT/HCPCS: 99214

== ENCOUNTER → 2024-06-29 10:40 | Outpatient (BNVA) | payer MEDICARE, SELFPAY | PROVIDERS: PCP Family Medicine; Visit Provider Hospitalist | DX: R05.3 Chronic cough (principal); J44.89 Other specified chronic obstructive pulmonary disease; J41.1 Mucopurulent chronic bronchitis; J98.09 Other diseases of bronchus, not elsewhere classified | CPT/HCPCS: 99212 ==

== ENCOUNTER 2024-10-29 10:25 | Outpatient (AMB) | payer MEDICARE, SELFPAY ==
[2024-10-29 10:29] VITALS: BP 132/76; PULSE 64; O2SAT 99; BMI 24.1
--- NOTE | 2024-10-29 10:29 | MHC.OFFVIS ---
Vital Signs 10/29/24 10:29 Height 5 ft Weight 123 lb 7.342 oz BMI 24.1 BP 132/76 Blood Pressure Location Rt brachial Position Sitting Pulse 64 Pulse Source Pulse Oximeter Pulse Oximetry (%) 99 Oxygen Delivery Method Room Air Intake Visit Reasons: Cough Allergies No Known Allergies Allergy (Verified 10/29/24 10:33) HPI Comments Details: The patient is a 69-year-old woman who presents with a chronic cough. The patient states that about 15 years ago when she was living in [place] she was diagnosed with pneumonia. At that time she was having significant respiratory complaints. Ultimately she was treated and had a repeat chest x-ray demonstrating resolution of the pneumonia per the report of the patient. However although her symptoms were better in the actually was better she continued to have a persistent cough. The cough seemed persistent and sometimes would have coughing spells which were be very dramatic. Sometimes she does expectorate specially in the morning. When she does expectorate she notices that the phlegm is thick tenacious sticky and clear. Denies any hemoptysis or denies any color. The patient now continues to have the same complaints and that with the pandemic she is concerned because of her coughing spells and being in public. She has been evaluated by ENT. She did have allergy testing done without any significant findings for upper airway cough syndrome or allergies that she is aware of. She also tried a month of PPI for reflux related cough. The patient did use an inhaler back when she developed pneumonia and that was only briefly and she has not using inhalers since. on examination she does have some limitations during the expiratory phase seems to be more of a upper airway wheeze. Will start with pulmonary function studies and a chest x-ray. If her x-rays abnormal or if it is nondiagnostic the patient will require a CT scan of the chest. In addition to that because of the extent of her cough in the upper airway component to her wheezing could consider a bronchoscopy in the near future. For now will start her on empiric inhalers with inhaled cortical steroids and a long-acting beta agonist in addition to cough suppressants. 11/29/2023 the patient is here for a pulmonary follow-up visit. Overall she has doing a little Better. The patient states that the Symbicort has been helpful with wheezing. She is also getting better rest at night with the cough syrup. Ali she is getting some improvement. Although she still has significant productive cough chest congestion typically in the morning. Moderate severity. We did look at her x-ray and she does have some changes consistent with hyperinflation and also some haziness over the right infrahilar area with some silhouetting of the right heart border suggesting component of airspace disease. In addition to that blunting of the left recess. Her PFTs demonstrate a mild obstruction. Therefore, will request a CT scan to better address the abnormal chest x-ray. In the meantime the patient will continue with current respiratory therapy. I did give her a sputum cup in order to try to get a sputum sample. We also talked about potentially considering a bronchoscopy for better evaluation of the airways and deep cultures. Will decide that based on her results of the CT scan. In the meantime we talked about sleeping with the head of bed elevated because potentially reflux related cough. She will look into getting risers for the head of the bed. 01/19/2024 the patient is here for a pulmonary follow-up visit. She is still coughing. She is concerned because she has no better. Still having productive phlegm prickly whitish in color. Sometimes [place]. She did try the risers for the bad sleep elevated but is not making much difference. The Symbicort is partially helpful. She does complaint of some chest tightness. She did not have a great response to bronchodilators. She has never been a smoker although she appears to have mild degree of COPD. Definitely feels it. We did review her CT scan of the chest. 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 She is following up in [place] with the doctor there regarding both apparent periodic in the adrenal lesion. Though appeared to be beyond. The patient also had blood work which pretty reassuring. No significant eosinophilia and immune system to be reasonable. Her IgG subclass 2 is a little low but her total levels are good and should not be resulting in recurrent infections. The patient does have some atelectasis the right middle lobe and lingula suggesting the possibility of smoldering diseases though. At this point will try to do is optimize her respiratory therapy by adding Spiriva to her Symbicort. In addition to that we can also consider nebulizer in the future to see if that provides better chest PT and mucus clearance. Also be reasonable to try her on azithromycin for 6-8 weeks to see if we can help with chronic bronchitis. I did provide her with a sputum cup in order for her to bring up sputum sample. And will consider bronchoscopy if no better. 05/01/2024 the patient is here for a pulmonary follow-up visit. Overall she is doing better. This combination has Symbicort and Spiriva have been helping her. The secretions in the lungs have subsided significantly. Although she still having coughing episodes moderate severity. Typically worse at nighttime. She has a hard time with shortness of breath and chest tightness and pressure sensation. Which is moderate severity. That is usually when she coughs and she relieves some of the pressure. Her CT scan of the chest that she had in the spring 2023 was reassuring without any evidence of any mosaic pattern. Still though she does have some wheezing on examination. Will plan to perform bronchoscopy to better assess the airways. Look for any obstructive physiology in addition to assessing for inflammation. The patient also be a candidate for Daliresp or potentially biologic therapy with test prior. Will do the bronchoscopy and have him forward. 06/29/2024 the patient is here for pulmonary follow-up visit. The patient is status post bronchoscopy. She tolerated the procedure well. I did review the results with her. We did have a video to look at. It appears that she does have some dynamic collapse of the left lower lobe. 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 It is dynamic in nature so does open up. We did talk about bed different mucus clearance. The patient did get an Acapella valve and therefore she can work on chest physical therapy. We also cultured Haemophilus parainfluenza she was treated with antibiotics for that. She is still completing a course. She continues with current respiratory therapy. She is going to continue with exercises to strengthen her lung capacity. 10/29/2024 the patient is here for a pulmonary follow-up visit. Overall the patient has been doing well. She continues use her respiratory medications as prescribed. Her chest congestion has significantly improved. She was treated for the Haemophilus parainfluenza during the last time. The patient is wondering about her prognosis. I did reassure her that if she continues to do well she will continue to heal those airways and hopefully them bronchomalacia would start subsiding. She needs to start exercising regularly and working on diaphragmatic excursion to allow mucus clearance. She will continue with the current respiratory regimen. We did review her PFTs that she had back in 2019 demonstrating some small airways disease. We also reviewed personally reviewed her CT scan of the chest demonstrating some mosaic pattern. Therefore I am hoping that she can come back in the fall with PFTs to see if this any improvement of the small airways disease. [facility] Medical History (Updated 07/01/24 @ 20:39 by Poncho Wilson MD) Bronchomalacia Asthma-COPD overlap syndrome Standard chest x-ray abnormal Chronic bronchitis Wheezing Chronic cough Surgical History (Updated 06/08/24 @ 12:55 by Rhona Ba RN) H/O colonoscopy History of foot surgery History of tonsillectomy H/O bladder repair surgery H/O hemorrhoidectomy Hx of appendectomy Social History Are you a primary care specialist to a significant other at home: No Do you presently have visiting nurse or other home services: No Patient Tobacco Use Status: Never used Tobacco Second Hand Smoke Exposure: No Review of Systems Const Denies fever(s) Eyes Reports no additional complaints ENT Denies change in voice Card Denies chest pain Resp Denies chest congestion and Reports cough GI Reports no additional complaints Reports urinary incontinence Musc Reports no additional complaints Skin/Breast Denies rash Neuro Reports no additional complaints Barrie/Lymph Denies lymphadenopathy Aller/Immun Denies seasonal rhinorrhea Physical Exam Vital Signs: Last Vital Signs Pulse 64 10/29/24 10:29 BP 132/76 10/29/24 10:29 Pulse Ox 99 10/29/24 10:29 Oxygen Delivery Method Room Air 10/29/24 10:29 BMI result Body Mass Index 24.1 Const General: comfortable HEENT Head: Yes normocephalic Neck Neck: Yes supple Chest Chest palpation & inspection: normal inspection of the chest Resp Effort & Inspection: normal respiratory effort and no cough Auscultation: no wheezes and diminished lung sounds Cardio Heart sounds: S1 normal heart sound present and S2 normal heart sound present GI Palpation (GI): Soft to palpation Skin General skin exam: no rashes or lesions noted Extrem General: Yes no clubbing, cyanosis or edema Assessment & Plan Assessment & Plan (1) Chronic cough: Code(s): R05.3 - Chronic cough Category: Medical (2) Asthma-COPD overlap syndrome: Code(s): J44.89 - Other specified chronic obstructive pulmonary disease Category: Medical (3) Chronic bronchitis: Code(s): J42 - Unspecified chronic bronchitis Category: Medical Qualifiers: Chronic bronchitis type: mucopurulent Qualified Code(s): J41.1 - Mucopurulent chronic bronchitis (4) Bronchomalacia: Code(s): J98.09 - Other diseases of bronchus, not elsewhere classified Category: Medical Plan continue Symbicort continue Spiriva Aerobika for chest physical therapy benzonates sleep with HOB elevated, risers consider barium swallow start exercise regimen F/U 8-10 months with PFTs Orders: Orders PFT pulmonary function test 06/17/25 J41.1 - Mucopurulent chronic bronchitis Coding Level of Care Code Est Pt Level 4 (03691) Diagnoses Chronic cough R05.3 Asthma-COPD overlap syndrome J44.89 Mucopurulent chronic bronchitis J41.1 Chronic bronchitis type: mucopurulent Bronchomalacia J98.09 Time Spent (min) 16
--- OUTSIDE RECORDS SUMMARY | 2024-10-29 10:53 | XMS_ITS | Data Portability ---
Author Organization SHANNAN [facility] Address [address] [place] [id number] Care Team Providers Care Mold Stamper Name Role Phone TARI HILL Primary Care Provider Assessment No assessment recorded. Plan of Treatment Reminders Order Date Submit Date Provider Last Modified By Organization Details Last Modified Time Details Appointments None recorded. Lab urinalysis, dipstick 2021 022 [facility], [address] [place] [address], [address], 2 10:19:38 culture, urine 2021 022 [place] [facility], [address] [place] [address], [address], 2 06:07:13 urinalysis, dipstick 2022 023 [place] [address]_[facility], [address] [place], [address], 3 19:59:27 culture, urine 2022 023 [place] [facility], [address] [place] [address], [address], 3 06:07:52 Referral None recorded. Procedures None recorded. Surgeries None recorded. Imaging None recorded. Medication Orders Macrobid 100 mg capsule 2021 023 [facility] #[id number], [address] [place], [address], 3 19:34:00 cephalexin 500 mg capsule 2022 023 [email or web address] [facility]armacy #[id number], [address] [facility] [place], [address], 3 20:24:35 Patient TargetsNo targets recorded. Patient Instructions Encounter Date Encounter Id Patient Instructions Last Modified By Organization Details Last Modified Time 10/02/2022 [id number] Urinary Tract Infection (UTI) in Women: Care Instructions pasha [email or web address] Not available 10/02/2022 10:19:38 12/27/2022 [id number] urinary tract infection in women information [email or web address] Not available 12/27/2022 19:59:39 Reason for Referral None Reported. Results Created Date Observation Date Name Description Value Unit Range Abnormal Flag Note LastModifiedBy Organization Detail LastModifiedTime 10/02/20 22 10/07/2022 URINE CULTU RE, ROUTI NE urine culture, routine FINAL REPORT abnormal Not Available [facility] ([facility]) [address] [place], [address], 10/07/2022 12:06:42 10/02/20 22 10/07/2022 URINE CULTU RE, ROUTI NE result 1 COMMEN T abnormal Prote us mirab ilis/ penne ri Cefaz ky <=4 ug/mL Cefaz ky with an SHAMIKA <=16 predi cts susce ptibi lity to the oral agent s cefac charles, cefdi vivian, cefpo doxim e, cefpr ozil, cefur oxime , cepha lexin , and lorac arbef when used for thera py of uncom plica roby urina ry tract infec tions due to E. coli, Klebs iella pneum oniae , and Prote us mirab ilis. Great er than 100,0 00 colon y formi ng units per mL Not Available [facility] ([facility]) [address] [facility], [place], [address], 10/07/2022 12:06:42 10/02/20 22 10/07/2022 URINE CULTU RE, ROUTI NE antimicrobia l susceptibili ty COMMEN T S = Susce ptibl e; I = Inter media te; R = Resis tant P = Posit south; N = Negat south MICS are expre ssed in micro grams per mL Antib iotic RSLT# 1 RSLT# 2 RSLT# 3 RSLT# 4 Amoxi cilli n/Cla vulan ic Acid S Ampic illin S Cefep abelardo S Ceftr iaxon e S Cefur oxime S Cipro floxa ceferino R Ertap enem S Genta micin S Levof loxac in R Merop enem S Nitro furan toin R Piper acill in/Ta zobac bruno S Tetra cycli ne R Tobra mycin S Trime thopr im/Cordon lfa S Not Available [facility] ([facility]) [address] [facility], [place], [address], 10/07/2022 12:06:42 10/02/2010/02/2022 urina lysis , dipst ick Unknown Analyte Light Yellow Not Available [facility] [address] [facility] [place], [address], 10/02/2022 09:54:55 10/02/20 22 10/02/2022 urina lysis , dipst ick Unknown Analyte Slight ly Cloudy Not Available [facility] [address] [facility] [place], [address], 10/02/2022 09:54:55 10/02/20 22 10/02/2022 urina lysis , dipst ick Unknown Analyte Negati ve Not Available [facility] [address] [facility] [place], [address], 10/02/2022 09:54:55 10/02/20 22 10/02/2022 urina lysis , dipst ick Unknown Analyte Negati ve Not Available [facility] [address] [facility] [place], [address], 10/02/2022 09:54:55 10/02/20 22 10/02/2022 urina lysis , dipst ick Unknown Analyte Negati ve Not Available cass lima [address] [place], [address], 10/02/2022 09:54:55 10/02/20 22 10/02/2022 urina lysis , dipst ick Unknown Analyte 1.010 Not Available _ laura [address] [place], [address], 10/02/2022 09:54:55 10/02/20 22 10/02/2022 urina lysis , dipst ick Unknown Analyte Large Not Available laura [address] [place], [address], 10/02/2022 09:54:55 10/02/20 22 10/02/2022 urina lysis , dipst ick Unknown Analyte 7.0 Not Available laura [address] [place], [address], 10/02/2022 09:54:55 10/02/20 22 10/02/2022 urina lysis , dipst ick Unknown Analyte Negati ve Not Available cass lima [address] [place], [address], 10/02/2022 09:54:55 10/02/20 22 10/02/2022 urina lysis , dipst ick Unknown Analyte 0.2 E.U./d L Not Available cass lima [address] [place], [address], 10/02/2022 09:54:55 10/02/20 22 10/02/2022 urina lysis , dipst ick Unknown Analyte Negati ve Not Available cass lima [address] [place], [address], 10/02/2022 09:54:55 10/02/20 22 10/02/2022 urina lysis , dipst ick Unknown Analyte Modera te Not Available [address] [facility], [place], [address], 10/02/2022 09:54:55 12/28/19 23 12/31/2022 URINE CULTU RE, RJI NE urine culture, routine FINAL REPORT Not Available [facility] ([facility]) [address] [facility], [place], [address], 12/31/2022 06:07:51 12/28/19 23 12/31/2022 URINE CULTU RE, ARANZA NE result 1 NO GROWTH Not Available [facility] ([facility]) [address] [facility], [place], [address], 12/31/2022 06:07:51 12/28/19 23 12/27/2022 urina lysis , dipst ick Unknown Analyte Yellow Not Available jaelyn [address], [place], [address], 12/27/2022 19:50:24 12/28/19 23 12/27/2022 urina lysis , dipst ick Unknown Analyte Clear Not Available jaelyn [address], [place], [address], 12/27/2022 19:50:24 12/28/19 23 12/27/2022 urina lysis , dipst ick Unknown Analyte Negati ve Not Available jamie rueda [address], [place], [address], 12/27/2022 19:50:24 12/28/19 23 12/27/2022 urina lysis , dipst ick Unknown Analyte Negati ve Not Available jamie rueda [address], [place], [address], 12/27/2022 19:50:24 12/28/19 23 12/27/2022 urina lysis , dipst ick Unknown Analyte Negati ve Not Available jamie rueda [address], [place], [address], 12/27/2022 19:50:24 12/28/19 23 12/27/2022 urina lysis , dipst ick Unknown Analyte 1.015 Not Available [facility] [address], [place], [address], 12/27/2022 19:50:24 12/28/19 23 12/27/2022 urina lysis , dipst ick Unknown Analyte Negati ve Not Available jamie rueda [address], [place], [address], 12/27/2022 19:50:24 12/28/19 23 12/27/2022 urina lysis , dipst ick Unknown Analyte 6.0 Not Available [address], [place], [address], 12/27/2022 19:50:24 12/28/19 23 12/27/2022 urina lysis , dipst ick Unknown Analyte Negati ve Not Available jamie rueda [address], [place], [address], 12/27/2022 19:50:24 12/28/19 23 12/27/2022 urina lysis , dipst ick Unknown Analyte 0.2 E.U./d L Not Available jamie pe [address], [place], [address], 12/27/2022 19:50:24 12/28/19 23 12/27/2022 urina lysis , dipst ick Unknown Analyte Negati ve Not Available jamie pe [address], [place], [address], 12/27/2022 19:50:24 12/28/19 23 12/27/2022 urina lysis , dipst ick Unknown Analyte Trace Not Available [address] [facility] [address] [place], [address], 12/27/2022 19:50:24 Result Notes None recorded. Problems Name Problem SNOMED Code Status Onset Date Resolution Date Notes Provider Name and Address Organization Details Recorded Time Migraine 45230591 Active 022 BRANDIE LUPICA null, PA - [facility] 09:51:30 Chronic urinary tract infection 970120757 Active 022 BRANDIE LUPICA null, PA - [facility] 09:51:50 Problem Notes None recorded. Procedures Surgical History Date Name Laterality Status Provider Name and Address Organization Details Recorded Time surgical repair of prolapsed uterus completed BRANDIE LUPICA PA - [facility] 10/02/2022 09:53:31 Appendectomy completed BRANDIE LUPICA PA - [facility] 10/02/2022 09:53:40 hemorrhoidectomy completed BRANDIE LUPICA PA - [facility] 10/02/2022 09:53:49 Remove tonsils and adenoids completed BRANDIE LUPICA PA - [facility] 10/02/2022 09:54:04 correction of clubfoot completed BRANDIE LUPICA PA - [facility] 10/02/2022 09:54:20 Imaging Results None recorded. Procedure Notes None recorded. Medical Equipment None Reported. Allergies No known drug allergies Medications Name Sig Start Date Stop Date Status Note LastModified by Organization Details LastModified Time hydrocodone 5 mg-acetamin ophen 325 mg tablet TAKE 1 TABLET BY MOUTH EVERY 6 HOURS NEEDED FOR PAIN 10/02 completed Not Available Not Available Not Available phenazopyri dine 200 mg tablet PLEASE SEE ATTACHED FOR DETAILED DIRECTION S 12/27 completed Not Available Not Available Not Available rizatriptan 10 mg tablet TAKE 1 TAB BY MOUTH NEEDED FOR MIGRAINE. MAY REPEAT IN 2 HOURS IF NEEDED active Not Available Not Available No t Available Zyrtec 10 mg tablet Take 1 tablet every day by oral route. active Not Available Not Available No t Available ketorolac 10 mg tablet TAKE 1 TABLET BY MOUTH EVERY 6 HOURS NEEDED FOR PAIN.NO T COVERED 10/02 completed Not Available Not Available Not Available ofloxacin 0.3 % ear drops PLACE 5 DROPS INTO AFFECTED EARS 2 TIMES DAILY TO THE RIGHT EAR 10/02 completed Not Available Not Available Not Available cephalexin 500 mg capsule Take 1 capsule 3 times a day by oral route for 5 days. 2022 active Not Available Not Available Not Avai lable Senna Laxative 8.6 mg tablet TAKE 1 TABLET BY MOUTH EVERY DAY FOR 14 DAYS.NO T COV 10/02 completed Not Available Not Available Not Available azelastine 137 mcg (0.1 %) nasal spray USE 2 SPRAYS NASALLY TWICE A DAY DIRECTED 12/27 completed Not Available Not Available Not Available cefdinir 300 mg capsule TAKE 1 CAPSULE (ORAL) 2 TIMES PER DAY FOR 7 DAYS FOR INFECTION 10/02 completed Not Available Not Available Not Available fluticasone propionate 50 mcg/actuati on nasal spray,suspe nsion INSTILL 2 PUFFS BY NASAL ROUTE ONCE A DAY active Not Available Not Available No t Available Maxalt 10/02 completed Not Available Not Available Not Available BinaxNOW COVID-19 Ag Self Test kit USE DIRECTED 10/02 completed Not Available Not Available Not Available Vitals Date Recorded Body height Provider Name an d Address Organization Details Last Updated DateTime 12/27/2022 152.4 cm BRANDIE SCHMITZ PA - [facility] 12/27/2022 19:32:56 Date Recorded Body mass index (BMI) Body weight Provider Name and Address Organization Details Last Updated DateTime 12/27/2022 25.4 kg/m2 53492.01 g BRANDIE SCHMITZ PA - [facility] 12/27/2022 19:33:01 Date Recorded Body temperature Provider Name a nd Address Organization Details Last Updated DateTime 12/27/2022 97 [degF] BRANDIE SCHMITZ PA - [facility] 12/27/2022 19:35:34 Date Recorded Oxygen saturation Oxygen saturation in Arterial blood by Pulse oximetry Provider Name and Address Organization Details Last Updated DateTime 12/27/2022 96 % 96 % BRANDIE SCHMITZ PA - [facility] 12/27/2022 19:35:41 Date Recorded Heart rate Provider Name an d Address Organization Details Last Updated DateTime 12/27/2022 72 /min BRANDIE SCHMITZ PA - [facility] 12/27/2022 19:35:43 Date Recorded Respiratory rate Provider Name a nd Address Organization Details Last Updated DateTime 12/27/2022 16 /min BRANDIE SCHMITZ PA - [facility] 12/27/2022 19:36:49 Date Recorded Body height Provider Name an d Address Organization Details Last Updated DateTime 10/02/2022 152.4 cm BRANDIE SCHMITZ PA - [facility] 10/02/2022 09:47:05 Date Recorded Body mass index (BMI) Body weight Provider Name and Address Organization Details Last Updated DateTime 10/02/2022 25.4 kg/m2 89632.01 g BRANDIE SCHMITZ PA - [facility] 10/02/2022 09:47:10 Date Recorded Body temperature Provider Name a nd Address Organization Details Last Updated DateTime 10/02/2022 97.7 [degF] BRANDIE SCHMITZ PA - [facility] 10/02/2022 09:47:47 Date Recorded Oxygen saturation Oxygen saturation in Arterial blood by Pulse oximetry Provider Name and Address Organization Details Last Updated DateTime 10/02/2022 97 % 97 % BRANDIE SCHMITZ PA - [facility] 10/02/2022 09:47:55 Date Recorded Heart rate Provider Name an d Address Organization Details Last Updated DateTime 10/02/2022 75 /min BRANDIE SCHMITZ PA - [facility] 10/02/2022 09:47:58 Date Recorded Respiratory rate Provider Name a nd Address Organization Details Last Updated DateTime 10/02/2022 16 /min BRANDIE SCHMITZ PA - [facility] 10/02/2022 09:48:49 Date Recorded Systolic blood pressure Diastolic blood pressure Provider Name and Address Organization Details Last Updated DateTime 12/27/2022 144 mm[Hg] 74 mm[Hg] BRANDIE SCHMITZ PA - [facility] 12/27/2022 19:36:44 Date Recorded Systolic blood pressure Diastolic blood pressure Provider Name and Address Organization Details Last Updated DateTime 10/02/2022 144 mm[Hg] 83 mm[Hg] BRANDIE SCHMITZ PA - [facility] 10/02/2022 09:48:46 Social History Question Answer Notes LastModified by Organizat ion Details LastModified Time Tobacco Smoking Status Never Smoker BRANDIE SCHMITZ dick PA - [facility] 10/02/2022 09:53:08 What Is Your Level Of Alcohol Consumption? Occasional [email or web address] Information not available 10/02/2022 Do You Use Any Illicit Or Recreational Drugs? No [email or web address] Information not available 10/02/2022 Have You Recently Traveled Abroad? No [email or web address] Information not available 10/02/2022 Do You Or Have You Ever Used Any Other Forms Of Tobacco Or Nicotine? No [email or web address] Information not available 10/02/2022 Sex: Unknown Functional Status None recorded. Mental Status None recorded. Family History Relationship Description Onset Age of this Age Resolved Age Notes LastModified by Organization Details LastModified Time Mother Dementia [email or web address] Not availabl e 10/02/2022 09:52:16 Father Malignant neoplastic disease Not available 2021 09:52:24 Father Malignant tumor of prostate [email or web address] Not available 2021 09:52:41 Medical History No medical history recorded. Gynecological HistoryNo gynecological history recorded. Obstetrics History GPAL:G 0 P 0 0 0 0 Past Encounters Encounter ID Performer Location Encounter Start Date Encounter Closed Date Diagnosis/Indication Diagnosis SNOMED-CT Code Diagnosis ICD10 Code Diagnosis Note [id number] [address] [place] [address] 03/25/2018 09:47:47 03/25/2018 10:30:39 [id number] [address] [address] [place] [address] 02/05/2017 17:37:30 02/05/2017 18:17:19 [id number] SHANNAN LEE [address] [place] [address] 10/02/2022 08:32:14 10/02/2022 10:28:22 Acute urinary tract infection 485566310 N39.0 Dysuria 15698916 R30.0 [id number] Deborah Powers MD [address] [place] [address] 12/27/2022 16:08:39 12/27/2022 20:03:34 Acute urinary tract infection 348456275 N39.0 Dysuria 84806106 R30.0 Health Concerns Section Related Observation LastModified by Organization Detai ls LastModified Time None Recorded Concern Status LastModified by Organization Details LastModified Time None Recorded Advance Directives Directive None Recorded Payers Encounter Date Sequence Insurance Name Policy Number Policy Mejia Covered Member ID Mejia Member ID Guarantor Name 10/02/2022 1 [facility] (MEDICARE REPLACEMENT/AD VANTAGE - PPO) [id number] Fausto Valadez [id number] Fausto Valadez 12/27/2022 1 [employer] (MEDICARE REPLACEMENT PPO) [id number] Fausto Ephraim Valadez [id number] Fausto Valadez Notes Date Note Type Note Provider Name and Address Organization Details Recorded Time 10/02/2022 text/html Fausto is a 66 yo F here for evaluation of UTI symptoms onset this morning. Has issue with frequent UTIs, multiple per year. Sx feel similar. + dysuria, urgency, and frequency since this morning at 7am. No fevers, chills, sweats, n/v/d, abd pain, flank pain, vaginal symptoms. SHANNAN STRANGE [facility] [place], [address], [place] - [facility] 10/02/2022 10:19:42 OBGyn Episode No OBEpisode recorded.
== END 2024-10-29 11:03 | disposition home or self-care (01) ==
PROVIDERS: PCP Family Medicine; Visit Provider Hospitalist
DX: J41.1 Mucopurulent chronic bronchitis (principal); J98.09 Other diseases of bronchus, not elsewhere classified
CPT/HCPCS: 99214

== ENCOUNTER → 2024-10-29 10:25 | Outpatient (BNVA) | payer MEDICARE, SELFPAY | PROVIDERS: PCP Family Medicine; Visit Provider Hospitalist | DX: J44.89 Other specified chronic obstructive pulmonary disease (principal); J41.1 Mucopurulent chronic bronchitis; J98.09 Other diseases of bronchus, not elsewhere classified; R05.3 Chronic cough | CPT/HCPCS: 99212 ==

== ENCOUNTER 2025-06-18 13:34 | Outpatient (REF) | payer MEDICARE, SELFPAY ==
--- NOTE | 2025-06-18 13:48 | PFT_ITS ---
Indication: Bronchitis Spirometry FEV1 to FVC 70% pre bronchodilators and 72% post bronchodilators; FEV1 1.98 L; FVC 2.73 L. no significant response to bronchodilators noted. Lung Volumes Total lung capacity 95% predicted; residual volume 72% predicted Diffusion Capacity DLCO 93% predicted Comparisons None Interpretation There appears to be a partially reversible obstructive ventilatory defect suspicious for the diagnosis of asthma. No significant response to bronchodilators noted. Lung volumes are within normal limits. Diffusing capacity also within normal limits. Clinical correlation warranted. MTDD
[2025-06-18 14:26] VITALS: PULSE 75; O2SAT 96
--- OUTSIDE RECORDS SUMMARY | 2025-06-18 16:06 | XMS_ITS ---
Author Name [facility] Organization Unknown History of Medication Use Medication Directions Dispensed Refills Start Date End Date Stat us Spiriva Respimat 06/08/2024 comp leted budesonide-formoterol 06/08/2024 completed methenamine hippurate 10/11/2022 completed simvastatin 10/11/2022 completed rizatriptan 10/11/2014 completed Care Team Organization Name Specialty Phone Email Start Date End Da te [facility] TARI HILL Primary Care [email or web address] 03/18/2023 4
--- OUTSIDE RECORDS SUMMARY | 2025-06-18 16:06 | XMS_ITS | Encounter Summary ---
Author Organization [facility] Address [facility] [address] [place] [address] Phone Care Team Providers Care Email Developer Name Role Phone Pardeep Casey MD Primary Care Provider [phone] Pcp, Unknown Primary Care Provider Mindy Gilbert MD Primary Care Provider [phone] Encounter Details Date Type Department Care Team (Late st Contact Info) Description 04/15/2018 Procedure Pass [facility], Ct Scan - [address] [address] Social History Tobacco Use Types Packs/Day Years Used Date Smoking Tobacco: Never Smokeless Tobacco: Never Alcohol Use Standard Drinks/Week Comments Yes 1 (1 standard drink = 0.6 oz pur e alcohol) Comments Unknown Sex and Gender Information Value Date Recorded Sex Assigned at Female 06/08/2021 10:09 AM EDT Legal Sex Female 3:35 PM EDT Gender Identity Female 06/08/2021 10:09 AM EDT Sexual Orientation Straight 06/08/2021 10 :09 AM EDT documented as of this encounter Plan of Treatment Not on file documented as of this encounter Visit Diagnoses Not on filedocumented in this encounter Care Teams Email Developer Relationship Specialty Start Date End Date Pardeep Casey MD [email or web address] PCP - General Internal Medicine 04/15/1805/10 Pcp, Unknown PCP - General 05/11/19 06/07/21 Mindy Jordan MD [address] [place] [id number] PCP - General Internal Medicine 06/08/21 documented as of this encounter Additional Source Comments The information contained in this document represents components of the legal health record. It is not the complete legal health record.[facility]
--- OUTSIDE RECORDS SUMMARY | 2025-06-18 16:06 | XMS_ITS | Clinical Summary ---
Author Organization [facility] Address [address] [facility] [address] [place] [address] Phone Care Team Providers Care Trimmer Climber Name Role Phone Mindy Jordan MD Primary Care Provider [phone] Allergies Active Allergy Reactions Criticality Noted Date Comments Perfume Headaches 10/10/1999 Medications acetaminophen (TYLENOL) 325 mg tablet Take 2 tablets (650 mg total) by mouth every 4 (four) hours as needed for mild pain. 0 8 Active rizatriptan (MAXALT) 10 MG tablet Take 1 tab By mouth as needed for migraine. May repeat in 2 hours if needed 0 Active fluticasone propionate (FLONASE) 50 mcg/actuation nasal spray INSTILL 2 PUFFS BY NASAL ROUTE ONCE A DAY 2 Active ketorolac (TORADOL) 10 mg tablet Take 1 tablet (10 mg total) by mouth every 6 (six) hours as needed for pain (specific location in comments). 10 tablet 2 Active Additional Information Patient not taking.Reported on 01/20/2022 HYDROcodone-noemi taminophen (NORCO) 5-325 mg per tablet Take 1 tablet by mouth every 6 (six) hours as needed for pain (specific location in comments). Partial fill ok 10 tablet 2 Active Additional Information Patient not taking.Reported on 01/20/2022 lidocaine (XYLOCAINE) 2 % mucosal gel jelly Apply topically as needed. TID to perineal incision 30 mL 2 Active Additional Information Patient not taking.Reported on 01/20/2022 azelastine (ASTELIN) 137 mcg (0.1 %) nasal spray USE 2 SPRAYS NASALLY TWICE A DAY DIRECTED 2 Active cetirizine (ZYRTEC) 10 MG tablet Take 10 mg by mouth daily. Active Active Problems Problem Noted Date Diagnosed Date Uterovaginal prolapse 12/11/2021 Appendicitis, acute 04/16/2018 Immunizations Immunization Administration Dates Next Due COVID-19 (Pre-08/01) Pfizer Vaccine, mRNA, PF ,12/13/2020 Family History Medical History Relation Comments Prostate cancer Father Dementia Mother Stroke Mother Relation Status Comments Father Mother Social History Tobacco Use Types Packs/Day Years Used Date Smoking Tobacco: Never Smokeless Tobacco: Never Alcohol Use Standard Drinks/Week Comments Yes 1 (1 standard drink = 0.6 oz pur e alcohol) Education Answer Date Recorded Are you interested in more education? Not on genet e 02/04/2023 Are you concerned about learning? Not on file 02/04/2023 No 02/04/2023 No 02/04/2023 Digital Access Answer Date Recorded No 03/05/2023 No 03/05/2023 Reliable internet access at home? Not on file 03/05/2023 Device with a working camera? Not on file Comments No Sex and Gender Information Value Date Recorded Sex Assigned at Female 06/08/2021 10:09 AM EDT Legal Sex Female 3:35 PM EDT Gender Identity Female 06/08/2021 10:09 AM EDT Sexual Orientation Straight 06/08/2021 10 :09 AM EDT Last Filed Vital Signs Vital Sign Reading Time Taken Comments Blood Pressure 126/77 07/07/2022 11:06 AM EDT Pulse 70 07/07/2022 11:06 AM EDT Temperature 37 C (98.6 F) 12/12/2021 12:13 PM EST Respiratory Rate 20 12/12/2021 12:13 PM EST Oxygen Saturation 97% 12/12/2021 12:13 PM EST Inhaled Oxygen Concentration - - Weight 59 kg (130 lb) 07/07/2022 11:06 AM EDT Height 152.4 cm (5') 07/07/2022 11:06 AM EDT Body Mass Index 25.39 07/07/2022 11:06 AM EDT Plan of Treatment Health Maintenance Due Date Last Done Comments DEPRESSION SCREENING 1965 HEPATITIS C SCREENING 1971 COLOGUARD 1998 COLONOSCOPY 1998 COLORECTAL CANCER SCREENING 1998 FIT TEST 1998 FOBT 1998 SIGMOIDOSCOPY 1998 VIRTUAL COLONOSCOPY 1998 OSTEOPOROSIS SCREENING INITIAL (ONE-TIME) 2018 MAMMOGRAM 11/02/2023 11/02/2021 INFLUENZA VACCINE (#1) 2025 , 07/08/2023, 07/09/2022, Additional history exists COVID-19 VACCINE (2024- season) 2025 05/14/2023, 05/14/2023, 07/01/2022, Additional history exists Adult Td,Tdap Booster 12/16/2025 12/17/2015 LIPID PANEL 08/02/2028 08/02/2023 RSV VACCINE (1 - 1-dose 75+ series) 2028 ZOSTER VACCINES Completed 10/14/2021, 06/26/2021 PNEUMOCOCCAL VACCINES (50+ years) Completed 07/09/2022, 06/11/2020 SMOKING STATUS SCREENING (Once After 26 Yrs) Completed 08/05/2023 HEPATITIS A VACCINES Aged Out No long er eligible based on patient's age to complete this topic HIB VACCINES Aged Out No longer eligi ble based on patient's age to complete this topic MENINGOCOCCAL VACCINES (ACWY) Aged Out No longer eligible based on patient's age to complete this topic MENINGOCOCCAL VACCINES (B) Aged Out N o longer eligible based on patient's age to complete this topic Medical Devices Not on file Insurance [employer] PPO MEDICARE REPLACEMENT [employer] PPO MEDICARE REPLACEMENT [employer] PPO MEDICARE REPLACEMENT AET[employer] PPO [facility]IC[facility] RE[facility] AETNA [facility] MEDIC[facility] REPLACEMENT Advance Directives For more information, please contact: [phone] (9AM - 5PM [place], Tuesday-Tuesday) * Full Code (Latest Code Status on File) Date Activated Date Inactivated Comments 12/11/2021 3:11 PM Question Answer Comments Code Status Confirmed With: Patient * Full Code (Presumed) Date Activated Date Inactivated Comments 04/16/2018 3:19 AM 04/16/2018 8:06 PM Care Teams Trimmer Climber Relationship Specialty Start Date End Date Mindy Jordan MD [address] [place] [id number] PCP - General Internal Medicine 06/08/21 Additional Source Comments The information contained in this document represents components of the legal health record. It is not the complete legal health record.[facility]
--- OUTSIDE RECORDS SUMMARY | 2025-06-18 16:06 | XMS_ITS | Encounter Summary ---
Author Organization [facility] Address [address] [place] [phone] Phone Care Team Providers Care Supervisor Train Operations Name Role Phone Mindy Jordan MD Primary Care Provider [phone] Encounter Details Date Type Department Care Team (Late st Contact Info) Description 12/11/2021 Procedure Pass [facility] [address] [place] [address] Social History Tobacco Use Types Packs/Day Years Used Date Smoking Tobacco: Never Smokeless Tobacco: Never Alcohol Use Standard Drinks/Week Comments Yes 1 (1 standard drink = 0.6 oz pur e alcohol) Comments No Sex and Gender Information Value [...] on filedocumented in this encounter Care Teams Supervisor Train Operations Relationship Specialty Start Date End Date Mindy Jordan MD [address] [place] [id number] PCP - General Internal Medicine 06/08/21 documented as of this encounter Additional Source Comments The information contained in this document represents components of the legal health record. It is not the complete legal health record.[facility]
--- OUTSIDE RECORDS SUMMARY | 2025-06-18 16:06 | XMS_ITS | Clinical Summary ---
Author Organization [address] Address [address] [place] [phone] Phone Care Team Providers Care [employer] Supervisor Name Role Phone Howie Mustafa MD Primary Care Pr ovider Allergies No known active allergies Medications benzonatate (TESSALON) 100 mg capsule Take 2 Capsules by mouth 2 times daily as needed. Active budesonide-formoter oL (SYMBICORT) 160-4.5 mcg/actuation inhaler Inhale 2 Puffs into the lungs 2 times daily. Active estradioL (ESTRACE) 0.01 % (0.1 mg/gram) vaginal cream PLEASE USE A PEA-SIZED AMOUNT ON YOUR FINGER AND PLACE INSIDE THE VAGINA FOR 2 WEEKS AT NIGHT, AND THEN DECREASE TO TWICE A WEEK AT NIGHT (MONDAYS AND THURSDAYS) 4 Active tiotropium (Spiriva Respimat) 2.5 mcg/actuation inhalation spray Inhale 2.5 mcg into the lungs daily. 4 Active methenamine hippurate (HIPREX) 1 gram tabletIndications:R ecurrent UTI Take 1 tablet (1 g total) by mouth 2 (two) times a day with meals. 180 each 3 5 Active rizatriptan (MAXALT) 10 mg tabletIndications:O ther migraine, not intractable, without status migrainosus TAKE 1 TABLET BY MOUTH EVERY DAY AND MAY REPEAT IN 2 HRS IF NEEDED 9 tablet 2 5 Active simvastatin (ZOCOR) 20 mg tabletIndications:M ixed hyperlipidemia Take 1 tablet (20 mg total) by mouth at bedtime. 90 each 1 5 07/09/20 25 Active calcium carbonate-vitamin D 600 mg-10 mcg (400 unit) per tabletIndications:A ge-related osteoporosis without current pathological fracture TAKE 1 TABLET BY MOUTH EVERY DAY 90 tablet 1 5 Active Active Problems Problem Noted Date Diagnosed Date Bilateral hearing loss 05/09/2025 Adenoma of left adrenal gland 02/16/2025 Asthma-COPD overlap syndrome (CMS/HCC V24, CMS/H CC V28) 07/12/2024 Assessment & Plan (01/10/2025 1:44 PM EDT): Continue follow-up with Dr. Wilson. Continue Spiriva daily ,Symbicort twice daily and benzonatate as needed for cough Bronchomalacia 07/12/2024 Assessment & Plan (01/10/2025 1:44 PM EDT): Continue follow-up with Dr. Wilson. Completed azithromycin course last year Prediabetes 07/08/2023 Assessment & Plan (01/10/2025 1:44 PM EDT): Well-controlled. Last A1c was 5.0 IPMN (intraductal papillary mucinous neoplasm) 0 02/16/2023 Assessment & Plan (01/10/2025 1:44 PM EDT): See HPI. Will update MRI of the abdomen Orders: MR Abdomen wo Contrast; Future Vitamin D insufficiency 01/25/2023 Assessment & Plan (01/10/2025 1:44 PM EDT): Continue vitamin D daily for AAA Recurrent UTI 01/04/2023 Assessment & Plan (01/10/2025 1:44 PM EDT): Well-controlled. Continue Hip-Ramana 1 g twice daily and Estrace vaginal cream Chronic cough 08/11/2021 Overview (09/10/2024): Diagnosed as chronic rhinitis, followed with allergies, pulmonary Referred to ENT Assessment & Plan (01/10/2025 1:44 PM EDT): Continue benzonatate as needed Midline cystocele 04/07/2021 Overview (09/10/2024): Follows with Dr Rubin in [place] Last Assessment & Plan: Reviewed options for pelvic organ prolapse including observation, as long as not having difficulty emptying or significant discomfort, pessary fitting, vs surgical intervention. She desires surgical intervention. Referral placed to urogynecology. Osteoporosis 10/23/2020 Assessment & Plan (01/10/2025 1:44 PM EDT): Continue calcium/vitamin D supplement. Still not interested in Prolia or other medication management for osteoporosis. Due for DEXA scan which is ordered Orders: BD Bone Density DXA Axial Skeleton; Future Herpes simplex 09/14/2018 Hyperlipidemia 09/14/2018 Assessment & Plan (01/10/2025 1:44 PM EDT): Stable. Continue simvastatin Orders: simvastatin (ZOCOR) 20 mg tablet; Take 1 tablet (20 mg total) by mouth at bedtime. Osteoarthritis of multiple joints 09/14/2018 Overview (09/10/2024): Hips, knees, thimbs Diverticulosis of large intestine without hemorr mike 08/03/2018 Overview (09/10/2024): Diverticulitis once, treated with antibiotics, no need for surgery External hemorrhoid 08/03/2018 Overview (09/10/2024): Follows with colorectal surgery S/p hemorrhoidectomy Migraine 08/03/2018 Overview (09/10/2024): Had normal brain MRI 10 years ago reportedly; triggers include perfumes and strong scents Assessment & Plan (01/10/2025 1:44 PM EDT): Stable. Continue rizatriptan as needed Immunizations Name Administration Dates Next Due Influenza trivalent, 0.5mL ( Fluad) 65yo and older 07/08/2023,07/09/2022,08/06/2021,07/24 Influenza trivalent, 0.5mL ( Fluzone High-dose) 65yo and older 07/19/2024 Moderna SARS-CoV-2 COVID-19, mRNA, LNP-S, preservative free 05/14/2023,07/01/2022 Pneumococcal conjugate 13 va lent (Prevnar 13, PCV13) 2mo and older 06/11/2020 Pneumococcal polysaccharide 23 valent (Pneumovax 23) 2yo and older 07/09/2022 RSV, bivalent, protein subun it RSVpreF, 0.5mL, Preservative Free (Arexvy) 60yo and older 09/20/2023 Tdap Tetanus diptheria acell ular pertussis (Boostrix; Adacel) 7yo and older 12/17/2015 Zoster recombinant (Shingrix ) 19yo and older 10/14/2021,06/26/2021 Surgical History Surgery Date Site/Laterality Comments APPENDECTOMY 2017 PROCEDURE: TX APPENDECTOMY; COMMENT: emergent TONSILLECTOMY PROCEDURE: HISTORICAL TONSILLECTOMY FOOT SURGERY PROCEDURE: HISTORICAL FOOT SURGERY; COMMENT: Repair of congenital clubfoot ADENOIDECTOMY PROCEDURE: HISTORICAL ADENOIDECTOMY OTHER SURGICAL HISTORY PROCEDURE: ---- HEMORRHOIDS ---- OTHER SURGICAL HISTORY 12/2021 PROCEDURE: TX UNLISTED LAPAROSCOPY PROCEDURE UTERUS; COMMENT: ([facility]) OTHER SURGICAL HISTORY 12/2023 Left PROCEDURE: TX EXCISION MALIGNANT LESION F/E/E/N/L 0.5 CM/<; COMMENT: pt had mohs procedure for removal of SCC on 2nd digit of left hand- [facility] Medical History Medical History Date Comments Migraine with aura and witho ut status migrainosus, not intractable 08/03/2018 DX:Migraine with aura and without status migrainosus, not intractable Diverticulosis of large inte alex without hemorrhage 08/03/2018 DX:Diverticulosis of large intestine without hemorrhage Herpes simplex 09/14/2018 DX:Herpes simple x History of actinic keratoses 09/14/2018 DX: History of actinic keratoses; COMMENT: [facility]. Annual F/U Hyperlipidemia 09/14/2018 DX:Hyperlipidemi a Osteoarthritis of multiple joints 09/14/2018 DX:Osteoarthritis of multiple joints; COMMENT: Hips, knees, thimbs External hemorrhoid 08/03/2018 DX:External hemorrhoid; COMMENT: Follows with colorectal surgery Abnormal mammogram 10/23/2020 DX:Abnormal m ammogram; COMMENT: Pending f/u imaging Covid-19 08/2022 DX:COVID-19 Pancreatic lesion DX:Pancreatic lesion Recurrent UTI DX:Recurrent UTI Family History Medical History Relation Name Comments No Known Problems Brother Prostate cancer Father with mets Stroke Mother Diabetes, Demen tia, Hydrocephalus Breast cancer Paternal Grandmother 70 Colon cancer Neg Hx Ovarian cancer Neg Hx Uterine cancer Neg Hx Relation Name Status Comments Brother Alive Father Mother Paternal Grandmother 70 Social History Tobacco Use Types Packs/Day Years Used Date Smoking Tobacco: Never Smokeless Tobacco: Never Tobacco Cessation:Counseling Given: Not Answered Alcohol Use Standard Drinks/Week Comments Yes 0 (1 standard drink = 0.6 oz pur e alcohol) Housing Instability Answer Date Recorde d Are you worried that in the next 2 months you may not have stable housing? No 01/03/2025 Food Access & Nutrition Answer Date Rec orded Do you have access to a vari ety of food including fruits and vegetables? Yes 01/03/2025 Access to Healthcare Answer Date Record ed Within the last 3 months, ho w many times did you visit the emergency department for your medical care? 0 01/03/2025 Health Literacy Answer Date Recorded How often do you need to hav e someone help you when you read instructions, pamphlets, or other written material from your doctor or pharmacy? Never 01/03/2025 Caregiver: How often do you need to have someone help you when you read instructions, pamphlets, or other written material from your doctor or pharmacy? Not on file 01/03/2025 Financial Risk Answer Date Recorded How hard is it for you to pa y for the very basics like food, housing, medical care, and air conditioning / heating? Not very hard 01/03/2025 Transportation Answer Date Recorded Has the lack of transportati on kept you from meetings, work, or from getting things needed for daily living? No Has the lack of transportati on kept you from medical appointments or from getting medications? No 01/03/2025 Social Isolation Answer Date Recorded How often do you feel lonely or isolated from th ose around you? Never 01/03/2025 Food Risk Answer Date Recorded Within the past 12 months we worried whether our food would run out before we got money to buy more. Never true 01/03/2025 Within the past 12 months th e food we bought just didn't last and we didn't have money to get more. Never true 01/03/2025 Dependent Care Answer Date Recorded Do you need help finding or paying for care for your loved ones. For example, childrens club attendant or elderly care for an older adult? No 01/03/2025 Education Answer Date Recorded Do you think completing more education or training, like finishing a GED, going to college, or learning a trade, would be helpful for you? No 01/03/2025 Employment and Income Answer Date Recor ded During the last four weeks, have you been actively looking for work? No 01/03/2025 Living Situation Answer Date Recorded What is your living situation? 0 01/03/2025 Comments No Sex and Gender Information Value Date Recorded Sex Assigned at Not on file Legal Sex Female 7:19 PM EST Gender Identity Not on file Sexual Orientation Not on file Obstetrics History Para Term AB IAB SAB Ectopic Multiple Livin g Live Births 2 2 2 2 Date Outcome GA Total Labor Labor/2nd/3rd Weight Sex Type Anes PTL Maryse A1 A5 Name Clin Term Term Last Filed Vital Signs Vital Sign Reading Time Taken Comments Blood Pressure 128/82 01/10/2025 9:42 AM EDT Pulse 76 01/10/2025 9:42 AM EDT Temperature 36.8 C (98.2 F) 01/10/2025 9:42 AM EDT Respiratory Rate 14 01/10/2025 9:42 AM EDT Oxygen Saturation - - Inhaled Oxygen Concentration - - Weight 53.5 kg (118 lb) 01/10/2025 9:42 AM EDT Height 152.4 cm (5') 01/10/2025 9:42 AM EDT Body Mass Index 23.05 01/10/2025 9:42 AM EDT Plan of Treatment Upcoming Encounters Date Type Department Care Team (Late st Contact Info) Description 06/26/2025 10:15 AM EDT [facility] [address] [place], [place] [address] [phone] Gwendolyn Wilson PA [address] [place] [address] 08/23/2025 9:00 AM EST Office Visit [facility] - [address] [phone] Howie Mustafa MD [address] [place], [place] 12/11/2025 11:30 AM EST Office Visit Urogynecology - [address] [phone] Shahnaz Winston MD [address] [facility] [address] [place] [address] Health Maintenance Due Date Last Done Comments Medicare Annual Wellness Visit 09/18/2022 Influenza Vaccine (#1) 2025 , 07/08/2023, 07/09/2022, Additional history exists COVID-19 Vaccine (10 - Pfizer risk 2023- season) 2025 01/07/2025, 07/03/2024, 10/13/2023, Additional history exists DTaP,Tdap,and Td Vaccines (2 - Td or Tdap) 12/16/2025 12/17/2015 Social Influencers of Health Screening 01/03/2026 01/03/2025 Falls Risk Assessment 01/10/2026 01/10/2025, 024 Breast Cancer Screening 02/21/2027 02/22/20, 02/09/2024, 02/09/2024, Additional history exists Colorectal Cancer Screening: Colonoscopy 12/04/2028 12/04/2018 Cholesterol Screening (Lipid Panel) 12/25/2029 12/25/2024, 09/11/2024, 02/16/2024, Additional history exists Osteoporosis Screening (Bone Density Screening) 03/13/2035 03/13/2025, 02/14/2023, 10/22/2020 Hepatitis C Screening Completed 07/18/2020 Zoster Vaccines Completed 10/14/2021, 06/26/2021 Pneumococcal Vaccine: 50+ Years Completed 07/09/2022, 06/11/2020 RSV Immunization Adult Patients Completed 09/20/2023 Depression Screening Completed 01/03/2025, 01/11/20 24 HIB Vaccines Aged Out No longer eligi ble based on patient's age to complete this topic HPV Vaccines Aged Out No longer eligi ble based on patient's age to complete this topic Hepatitis A Vaccines Aged Out No long er eligible based on patient's age to complete this topic Hepatitis B Vaccines Aged Out No long er eligible based on patient's age to complete this topic IPV Vaccines Aged Out No longer eligi ble based on patient's age to complete this topic MMR Vaccines Aged Out No longer eligi ble based on patient's age to complete this topic Meningococcal ACWY Vaccine Aged Out N o longer eligible based on patient's age to complete this topic Meningococcal B Vaccine Aged Out No l onger eligible based on patient's age to complete this topic RSV Immunization Patients Under 20 months Aged Out No longer eligible based on patient's age to complete this topic Varicella Vaccines Aged Out No longer eligible based on patient's age to complete this topic Procedures Procedure Name Priority Date/Time Associated Diagnosis Comments BD BONE DENSITY DXA AXIAL SKELETON Routine 03/13/2025 1:16 PM EDT Age-related osteoporosis without current pathological fracture MG MAMMO DIGITAL SCREENING W LOGAN BILAT Routine 02/21/2025 1:35 PM EDT Encounter for screening mammogram for breast cancer LIPID PANEL WITH REFLEX TO DIRECT LDL Routine 12/25/2024 8:39 AM EDT Mixed hyperlipidemia FALLS RISK ASSESSMENT Routine 07/12/2024 DEPRESSION SCREENING Routine 01/11/2024 HEPATITIS C SCREENING Routine 07/18/2020 COLONOSCOPY Routine 12/04/2018 from Last 3 Months or Most Recently Relevant to Health Maintenance Results * BD Bone Density DXA Axial Skeleton (03/13/2025 1:16 PM EDT) Anatomical Region Laterality Modality Wrist, Hip, L-spine Bone Densito metry 03/13/2025 1:33 PM EDT Impressions 03/13/2025 1:35 PM EDT Osteoporosis by WHO criteria. [facility] Department of Internal Medicine recommends using National Osteoporosis Foundation (NOF) guidelines in treatment decisions related to osteoporosis. NOF guidelines suggest considering treatment for postmenopausal women and men aged 50 or older presenting with the following: History of hip or vertebral fracture. T-score = -2.5 (DXA) at the femoral neck, total hip, or spine, after appropriate evaluation to exclude secondary causes. Low bone mass (T-score between -1.0 and -2.5 at the femoral neck or spine) AND a 10-year probability of a hip fracture = 3% OR a 10-year probability of a major osteoporosis-related fracture = 20% based on the [place]-adapted WHO algorithm Please note that all treatment decisions require clinical judgment and consideration of individual patient factors, including patient preferences, co-morbidities, previous drug use, risk factors not captured in the FRAX model (e.g., frailty, falls, vitamin D deficiency, increased bone turnover, interval significant decline in bone density) and possible under- or over-estimation of fracture risk by FRAX. Optional alternative screening schedule based on candida Grande., [facility] October 28, 2011 for patients with osteopenia (based on hip BMD T-score) is as follows: * advanced osteopenia (T scores -2.00 to -2.49), BMD testing every year * moderate osteopenia (T scores -1.50 to -1.99), BMD testing every 5 years mild osteopenia or normal BMD (T scores -1.50 and higher), BMD testing every 15 years -------- FINAL REPORT -------- Dictated By: Vandana Vega Dictated Date: 03/13/2025 13:33 ET Assigned Physician: Vandana Vega Reviewed and Electronically Signed By: Vandana Vega Signed Date: 03/13/2025 13:35 ET Workstation ID: [id number] Transcribed By: Self Edit Transcribed Date: 03/13/2025 13:33 ET Narrative 03/13/2025 1:35 PM EDT BONE DENSITY SCAN (DEXA): FINDINGS: Lumbar Spine T-score is -2.0. (SD relative to 20-29 y/o adult) Z-score is 0.2. (SD relative to age matched peers) This is considered osteopenia by WHO criteria. Left Hip T-score is -2.7. Z-score is -0.8. This is considered osteoporosis by WHO criteria. Comparison exam(s): 02/14/2023. 6.5% loss of lumbar spine bone mineral density which is statistically significant at the 95% confidence level. No statistically significant change in left hip bone mineral density. Procedure Note Vandana Vega MD - 03/13/2025 BONE DENSITY SCAN (DEXA): FINDINGS: Lumbar Spine T-score is -2.0. (SD relative to 20-29 y/o adult) Z-score is 0.2. (SD relative to age matched peers) This is considered osteopenia by WHO criteria. Left Hip T-score is -2.7. Z-score is -0.8. This is considered osteoporosis by WHO criteria. Comparison exam(s): 02/14/2023. 6.5% loss of lumbar spine bone mineraldensity which is statistically significant at the 95% confidence level.No statistically significant change in left hip bone mineral density. IMPRESSION: Osteoporosis by WHO criteria. [facility] Department of Internal Medicine recommendsusing National Osteoporosis Foundation (NOF) guidelines in treatmentdecisions related to osteoporosis. NOF guidelines suggest consideringtreatment for postmenopausal women and men aged 50 or older presentingwith the following: History of hip or vertebral fracture. T-score = -2.5 (DXA) at the femoral neck, total hip, or spine, afterappropriate evaluation to exclude secondary causes. Low bone mass (T-score between -1.0 and -2.5 at the femoral neck or spine)AND a 10-year probability of a hip fracture = 3% OR a 10-year probabilityof a major osteoporosis-related fracture = 20% based on the [place]-adapted WHOalgorithm Please note that all treatment decisions require clinical judgment andconsideration of individual patient factors, including patientpreferences, co-morbidities, previous drug use, risk factors not capturedin the FRAX model (e.g., frailty, falls, vitamin D deficiency, increasedbone turnover, interval significant decline in bone density) and possibleunder- or over-estimation of fracture risk by FRAX. Optional alternative screening schedule based on maury Grande al., [facility] for patients with osteopenia (based on hip BMD T-score)is as follows: * advanced osteopenia (T scores -2.00 to -2.49), BMD testing every year * moderate osteopenia (T scores -1.50 to -1.99), BMD testing every 5years mild osteopenia or normal BMD (T scores -1.50 and higher), BMD testingevery 15 years -------- FINAL REPORT -------- Dictated By: Vandana Vega Dictated Date: 03/13/2025 13:33 ET Assigned Physician: Vandana Vega Reviewed and Electronically Signed By: Vandana Vega Signed Date: 03/13/2025 13:35 ET Workstation ID: [id number] Transcribed By: Self Edit Transcribed Date: 03/13/2025 13:33 ET Howie Mustafa MD IM DXA PROCEDUR ES Final Result * MG Mammo Digital Screening w Logan bilat (02/21/2025 1:35 PM EDT) Anatomical Region Laterality Modality Breast Bilateral Mammography 02/22/2025 7:45 AM EDT Impressions 02/22/2025 7:46 AM EDT No mammographic evidence of malignancy. BREAST DENSITY: C - The breasts are heterogeneously dense which may obscure small masses. BI-RADS CATEGORY: 1 - NEGATIVE RECOMMENDATION: Screening bilateral mammogram is recommended in 1 year. MAMMO LOCATION: [facility], [address] [place] [address], [id number], . -------- FINAL REPORT -------- Dictated By: Vandana Vega Dictated Date: 02/22/2025 07:45 ET Assigned Physician: Vandana Vega Reviewed and Electronically Signed By: Vandana Vega Signed Date: 02/22/2025 07:46 ET Workstation ID: [id number] Transcribed By: Self Edit Transcribed Date: 02/22/2025 07:45 ET Narrative 02/22/2025 7:46 AM EDT EXAM: Screening Mammogram CLINICAL: 69 years old, Female, routine annual exam. COMPARISON: 02/09/2024 and as far back as 10/22/2020 TECHNIQUE: Bilateral MLO and CC views were obtained digitally with 3-D mammogram (digital breast tomosynthesis). Computer-aided detection was utilized in evaluation of this exam (CAD). FINDINGS: No new suspicious mass, architectural distortion, or suspicious calcifications. Procedure Note Vandana Vega MD - 02/22/2025 EXAM: Screening Mammogram CLINICAL: 69 years old, Female, routine annual exam. COMPARISON: 02/09/2024 and as far back as 10/22/2020 TECHNIQUE: Bilateral MLO and CC views were obtained digitally with 3-Dmammogram (digital breast tomosynthesis). Computer-aided detection wasutilized in evaluation of this exam (CAD). FINDINGS: No new suspicious mass, architectural distortion, or suspiciouscalcifications. IMPRESSION: No mammographic evidence of malignancy. BREAST DENSITY: C - The breasts are heterogeneously dense which mayobscure small masses. BI-RADS CATEGORY: 1 - NEGATIVE RECOMMENDATION: Screening bilateral mammogram is recommended in 1 year. MAMMO LOCATION: [facility], [address] [place] [address], [id number], . -------- FINAL REPORT -------- Dictated By: Vandana Vega Dictated Date: 02/22/2025 07:45 ET Assigned Physician: Vandana Vega Reviewed and Electronically Signed By: Vandana Vega Signed Date: 02/22/2025 07:46 ET Workstation ID: [id number] Transcribed By: Self Edit Transcribed Date: 02/22/2025 07:45 ET Howie Mustafa MD [facility] BI PROCEDURE S Final Result * Lipid panel with reflex to direct LDL (12/25/2024 8:39 AM EDT) Cholesterol 167 0 - 200 mg/dL LAB CHEMISTRY METHOD 12/25/2024 11:16 AM EDT [facility] Triglycerides 96 0 - 150 mg/dL LAB CHEMISTRY METHOD 12/25/2024 11:16 AM EDT [facility] HDL 80 >=40 mg/dL LAB CHEMISTRY METHOD 12/25/2024 11:16 AM EDT [facility] LDL Calculated 68 0 - 100 mg/dL LAB CHEMISTRY METHOD 12/25/2024 11:16 AM EDT [facility] VLDL Cholesterol Anand 19.2 mg/dL LAB CHEMISTRY METHOD 12/25/2024 11:16 AM EDT [facility] Non HDL Chol. (LDL+VLDL) 87 <145 mg/dL LAB CHEMISTRY METHOD 12/25/2024 11:16 AM EDT [facility] Chol/HDL Ratio 2.1 0.0 - 4.4 LAB CHEMISTRY METHOD 12/25/2024 11:16 AM T [facility] Blood Venous blood specimen / Unknown Venipuncture / Unknown 12/25/2024 8:39 AM EDT 12/25/2024 8:39 AM EDT Howie Mustafa MD LAB BLOOD ORDERA BLES Final Result [facility] [address] [place] [address], [place] [phone] * Falls Risk Assessment (07/12/2024) Falls Risk Assessment abstracted Historical Provider HEALTH MAINTENANCE Final Result * Depression Screening (01/11/2024) Depression Screening abstracted Historical Provider HEALTH MAINTENANCE Final Result * Hepatitis C Screening (07/18/2020) Hepatitis C Screening abstracted Historical Provider HEALTH MAINTENANCE Final Result * Colonoscopy (12/04/2018) Colonoscopy no interpretation , abstracted Anatomical Region Laterality Modality Other [facility] Provider HEALTH MAINTENANCE Final Result from Last 3 Months or Most Recently Relevant to Health Maintenance Insurance [employer] MED[employer]AGE Care Teams [employer] Supervisor Relationship Specialty Start Date End Date Howie Mustafa MD [address] [facility], [place] PCP - General Internal Medicine 07/09/22
--- OUTSIDE RECORDS SUMMARY | 2025-06-18 16:06 | XMS_ITS | Clinical Summary ---
Author Organization Formerly [facility] Address [address] [place] [address] Care Team Providers Care Marketing Community Liaison Name Role Phone Unavailable Primary Care Provider Unavailabl e Encounters Date Type Department Care Team Description 05/16/2025 Orders Only [facility] [address] [place] [id number] Benita Flanagan PA-C from Last 3 Months Social History Tobacco Use Types Packs/Day Years Used Date Smoking Tobacco: Never Assessed Comments Unknown Sex and Gender Information Value Date Recorded Sex Assigned at Not on file Legal Sex Female 9:24 AM EDT Gender Identity Not on file Sexual Orientation Not on file Plan of Treatment Health Maintenance Due Date Last Done Comments Advance Care Planning 1955 Hepatitis C Virus Screening 1955 DTaP/Tdap/Td Vaccines (1 - Tdap) 1972 Pneumococcal Vaccines 50+ (1 of 1 - PCV) 2003 Zoster (Shingles) Vaccine (1 of 2) 2003 COVID-19 Vaccine ( - 2023-2 5 season) 2024 RSV Vaccine 60 years and old er and Patients (1 - 1-dose 75+ series) 2028 Hepatitis B Vaccines Aged Out No long er eligible based on patient's age to complete this topic Procedures Procedure Name Priority Date/Time Associated Diagnosis Comments MR BRAIN WITH AND WITHOUT CONTRAST Routine 05/16/2025 1:51 PM EDT from Last 3 Months Results * MR BRAIN WITH AND WITHOUT CONTRAST (05/16/2025 1:51 PM EDT) Anatomical Region Laterality Modality Other 05/16/2025 1:15 PM EDT 05/16/2025 1:15 PM EDT Narrative 05/16/2025 3:40 PM EDT EXAMINATION: MR BRAIN WITH AND WITHOUT CONTRAST CLINICAL INDICATION: Female, 69 years old. Bilateral hearing loss TECHNIQUE: Multiplanar, multisequence MRI of the brain. CONTRAST: 5.5 mL of Gadavist IV. COMPARISON: None FINDINGS: Internal Auditory Canals: The 7th and 8th cranial nerve complex is normal in appearance without evidence of abnormal enhancement or mass. There is no mass within the cerebellopontine angle. There is no abnormal signal or enhancement within the brainstem or cerebellum. There is preservation of the normal fluid signal within the semicircular canals and cochlea. Brain: There is no restricted diffusion to suggest a recent infarct. There is no hemosiderin susceptibility effect to suggest prior hemorrhage. There is a mild amount of abnormal T2 prolongation within the white matter which is non-specific but most often seen in the setting of chronic white matter disease. There is global cerebral volume loss with enlargement of the ventricles and extra-axial spaces which is appropriate for age. There is no hydrocephalus. There is no midline shift. There is no abnormal parenchymal or meningeal enhancement. There appears to be a small arachnoid cyst along the anteromedial aspect the left temporal lobe Orbits: Normal. Pituitary: The sella and para-sellar structures are normal. Paranasal Sinuses and Temporal Bones: The paranasal sinuses, mastoid air cells, and middle ear cavities are well aerated. Vasculature: There are normal flow voids in the anterior and posterior circulation. IMPRESSION: No evidence of retrocochlear pathology. There is no evidence of an acute infarct, hemorrhage, or mass. Electronically signed by: Gen Pace MD 05/16/2025 03:40 PM EDT Thank you for referring your patient to us, Gen Pace MD [id number] (Electronically Signed - 05/16/2025 15:40) Copy: PROVIDER NOT IN DICTIONARY , Procedure Note Gen Pace MD - 05/16/2025 EXAMINATION: MR BRAIN WITH AND WITHOUT CONTRAST CLINICAL INDICATION: Female, 69 years old. Bilateral hearing loss TECHNIQUE: Multiplanar, multisequence MRI of the brain. CONTRAST: 5.5 mL of Gadavist IV. COMPARISON: None FINDINGS: Internal Auditory Canals: The 7th and 8th cranial nerve complex is normalin appearance without evidence of abnormal enhancement or mass. There isno mass within the cerebellopontine angle. There is no abnormal signal orenhancement within the brainstem or cerebellum. There is preservation of the normal fluid signalwithin the semicircular canals and cochlea. Brain: There is no restricted diffusion to suggest a recent infarct.There is no hemosiderin susceptibility effect to suggest prior hemorrhage.There is a mild amount of abnormal T2 prolongation within the whitematter which is non-specific but most often seen in the setting of chronic white matter disease. There isglobal cerebral volume loss with enlargement of the ventricles andextra-axial spaces which is appropriate for age. There is nohydrocephalus. There is no midline shift. There is no abnormal parenchymal or meningeal enhancement. There appears to be a smallarachnoid cyst along the anteromedial aspect the left temporal lobe Orbits: Normal. Pituitary: The sella and para-sellar structures are normal. Paranasal Sinuses and Temporal Bones: The paranasal sinuses, mastoid aircells, and middle ear cavities are well aerated. Vasculature: There are normal flow voids in the anterior and posteriorcirculation. IMPRESSION: No evidence of retrocochlear pathology. There is no evidence of an acuteinfarct, hemorrhage, or mass. Electronically signed by: Gen Pace MD 05/16/2025 03:40 PM EDT RPWorkstation: [id number] Thank you for referring your patient to us, Gen Pace MD [id number] (Electronically Signed - 05/16/2025 15:40) Copy: PROVIDER NOT IN DICTIONARY , us Benita Flanagan PA-C [facility] LEGACY PROCEDURES Final R esult from Last 3 Months
--- OUTSIDE RECORDS SUMMARY | 2025-06-18 16:06 | XMS_ITS | Encounter Summary ---
Author Organization [facility] Address [address] [place] [address] Phone Care Team Providers Care Master Welder Name Role Phone Pardeep Casey MD Primary Care Provider [phone] Pcp, Unknown Primary Care Provider Mindy Gilbert MD Primary Care Provider [phone] Encounter Details Date Type Department Care Team (Late st Contact Info) Description 04/16/2018 Procedure Pass OR Admitting Dept - Virtual Department [address] [place] [address] Social History Tobacco Use Types Packs/Day Years [...] on filedocumented in this encounter Care Teams Master Welder Relationship Specialty Start Date End Date Pardeep Casey MD [email or web address] PCP - General Internal Medicine 04/15/1805/10 Pcp, Unknown PCP - General 05/11/19 06/07/21 Mindy Jordan MD [address] [place] [address] PCP - General Internal Medicine 06/08/21 documented as of this encounter Additional Source Comments The information contained in this document represents components of the legal health record. It is not the complete legal health record.[facility]
--- OUTSIDE RECORDS SUMMARY | 2025-06-18 16:06 | XMS_ITS | Encounter Summary ---
Author Organization [facility] Address [address] [facility] [address] [place] [address] Phone Care Team Providers Care Life Guard Name Role Phone Mindy Jordan MD Primary Care Provider [phone] Encounter Details Date Type Department Care Team (Latest Contact Info) Description 11/04/2021 Prep for Surgery [facility] [address] [facility] [address] [place] [address] Hannah Rubin MD [address] [facility] [address] [place] [address] [email or web address] Uterovaginal prolapse (Primary Dx) Social History Tobacco Use Types Packs/Day Years [...] documented as of this encounter Visit Diagnoses Diagnosis Uterovaginal prolapse- Primary Uterovaginal prolapse, unspecified documented in this encounter Care Teams Life Guard Relationship Specialty Start Date End Date Mindy Jordan MD [address] [place] [address] [place] [id number] PCP - General Internal Medicine 06/08/21 documented as of this encounter Additional Source Comments The information contained in this document represents components of the legal health record. It is not the complete legal health record.[facility]
== END 2025-06-18 13:35 | disposition home or self-care (01) ==
LOC: HO.RESP 13:34
PROVIDERS: PCP Family Medicine; Visit Provider Hospitalist
DX: J41.1 Mucopurulent chronic bronchitis (principal)
CPT/HCPCS: 94010; 94640; 94727; 94729

== ENCOUNTER → 2025-06-18 13:48 | Outpatient (BNV) | payer MEDICARE, SELFPAY | PROVIDERS: PCP Family Medicine; Visit Provider Hospitalist | DX: J41.1 Mucopurulent chronic bronchitis (principal) | CPT/HCPCS: 94060; 94727; 94729 ==

== ENCOUNTER 2025-08-01 09:50 | Outpatient (AMB) | payer MEDICARE, SELFPAY ==
--- NOTE | 2025-08-01 09:53 | A.OFFVIS_ITS ---
Vital Signs 08/01/25 09:54 Height 5 ft Weight 125 lb 10.616 oz BMI 24.5 BP 128/70 Blood Pressure Location Lt brachial Position Sitting Pulse 65 Pulse Source Pulse Oximeter Pulse Oximetry (%) 97 Oxygen Delivery Method Room Air Intake Visit Reasons: Cough Baggage Handling Supervisor Required: No Accompanied by: Self / Same As Patient Allergies No Known Allergies Allergy (Verified 08/01/25 09:57) HPI Comments Details: The patient is a 69-year-old woman who presents with a chronic cough. The patient states that about 15 years ago when she was living in [place] she was diagnosed with pneumonia. At that time she was having significant respiratory complaints. Ultimately she was treated and had a repeat chest x-ray demonstrating resolution of the pneumonia per the report of the patient. However although her symptoms were better in the actually was better she continued to have a persistent cough. The cough seemed persistent and sometimes would have coughing spells which were be very dramatic. Sometimes she does expectorate specially in the morning. When she does expectorate she notices that the phlegm is thick tenacious sticky and clear. Denies any hemoptysis or denies any color. The patient now continues to have the same complaints and that with the pandemic she is concerned because of her coughing spells and being in public. She has been evaluated by ENT. She did have allergy testing done without any significant findings for upper airway cough syndrome or allergies that she is aware of. She also tried a month of PPI for reflux related cough. The patient did use an inhaler back when she developed pneumonia and that was only briefly and she has not using inhalers since. on examination she does have some limitations during the expiratory phase seems to be more of a upper airway wheeze. Will start with pulmonary function studies and a chest x-ray. If her x-rays abnormal or if it is nondiagnostic the patient will require a CT scan of the chest. In addition to that because of the extent of her cough in the upper airway component to her wheezing could consider a bronchoscopy in the near future. For now will start her on empiric inhalers with inhaled cortical steroids and a long-acting beta agonist in addition to cough suppressants. 11/29/2023 the patient is here for a pulmonary follow-up visit. Overall she has doing a little Better. The patient states that the Symbicort has been helpful with wheezing. She is also getting better rest at night with the cough syrup. Ali she is getting some improvement. Although she still has significant productive cough chest congestion typically in the morning. Moderate severity. We did look at her x-ray and she does have some changes consistent with hyperinflation and also some haziness over the right infrahilar area with some silhouetting of the right heart border suggesting component of airspace disease. In addition to that blunting of the left recess. Her PFTs demonstrate a mild obstruction. Therefore, will request a CT scan to better address the abnormal chest x-ray. In the meantime the patient will continue with current respiratory therapy. I did give her a sputum cup in order to try to get a sputum sample. We also talked about potentially considering a bronchoscopy for better evaluation of the airways and deep cultures. Will decide that based on her results of the CT scan. In the meantime we talked about sleeping with the head of bed elevated because potentially reflux related cough. She will look into getting risers for the head of the bed. 01/19/2024 the patient is here for a pulmonary follow-up visit. She is still coughing. She is concerned because she has no better. Still having productive phlegm prickly whitish in color. Sometimes Randolph. She did try the risers for the bad sleep elevated but is not making much difference. The Symbicort is part ially helpful. She does complaint of some chest tightness. She did not have a great response to bronchodilators. She has never been a smoker although she appears to have mild degree of COPD. Definitely feels it. We did review her CT scan of the chest. 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 She is following up in [place] with the doctor there regarding both apparent periodic in the adrenal lesion. Though appeared to be beyond. The patient also had blood work which pretty reassuring. No significant eosinophilia and immune system to be reasonable. Her IgG subclass 2 is a little low but her total levels are good and should not be resulting in recurrent infections. The patient does have some atelectasis the right middle lobe and lingula suggesting the possibility of smoldering diseases though. At this point will try to do is optimize her respiratory therapy by adding Spiriva to her Symbicort. In addition to that we can also consider nebulizer in the future to see if that provides better chest PT and mucus clearance. Also be reasonable to try her on azithromycin for 6-8 weeks to see if we can help with chronic bronchitis. I did provide her with a sputum cup in order for her to bring up sputum sample. And will consider bronchoscopy if no better. 05/01/2024 the patient is here for a pulmonary follow-up visit. Overall she is doing better. This combination has Symbicort and Spiriva have been helping her. The secretions in the lungs have subsided significantly. Although she still having coughing episodes moderate severity. Typically worse at nighttime. She has a hard time with shortness of breath and chest tightness and pressure sensation. Which is moderate severity. That is usually when she coughs and she relieves some of the pressure. Her CT scan of the chest that she had in the spring 2023 was reassuring without any evidence of any mosaic pattern. Still though she does have some wheezing on examination. Will plan to perform bronchoscopy to better assess the airways. Look for any obstructive physiology in addition to assessing for inflammation. The patient also be a candidate for Daliresp or potentially biologic therapy with test prior. Will do the bronchoscopy and have him forward. 06/29/2024 the patient is here for pulmonary follow-up visit. The patient is status post bronchoscopy. She tolerated the procedure well. I did review the results with her. We did have a video to look at. It appears that she does have some dynamic collapse of the left lower lobe. 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 It is dynamic in nature so does open up. We did talk about bed different mucus clearance. The patient did get an Acapella valve and therefore she can work on chest physical therapy. We also cultured Haemophilus parainfluenza she was treated with antibiotics for that. She is still completing a course. She continues with current respiratory therapy. She is going to continue with exercises to strengthen her lung capacity. 10/29/2024 the patient is here for a pulmonary follow-up visit. Overall the patient has been doing well. She continues use her respiratory medications as prescribed. Her chest congestion has significantly improved. She was treated for the Haemophilus parainfluenza during the last time. The patient is w ondering about her prognosis. I did reassure her that if she continues to do well she will continue to heal those airways and hopefully them bronchomalacia would start subsiding. She needs to start exercising regularly and working on diaphragmatic excursion to allow mucus clearance. She will continue with the current respiratory regimen. We did review her PFTs that she had back in 2019 demonstrating some small airways disease. We also reviewed personally reviewed her CT scan of the chest demonstrating some mosaic pattern. Therefore I am hoping that she can come back in the fall with PFTs to see if this any improvement of the small airways disease. 08/01/2025 the patient is here for pulmonary follow-up visit. Overall the patient has been doing well. She continues use her Symbicort and also her Spiriva with good effect. She typically coughs in the morning. She recently was diagnosed with significant osteoporosis. She was started on Fosamax. We did talk about the inhaled steroids and to be careful with the inhaled corticosteroids specially if she has any risk of developing worsening osteoporosis. She is going to try decreasing the Symbicort to 2 puffs in the morning and then as needed at nighttime. Although she does have issues with cough in the morning. She did have pulmonary function studies which we personally reviewed. She does have what appears to be a very mild subclinical obstruction and otherwise normal lung capacity. Her last CT scan was done back in 2023 and she did have some areas of atelectasis mucus plugging in addition to that the patient did have what appeared to be a nonspecific adrenal lesion. She needs to have a follow-up CAT scan to address that. [facility] Medical History (Updated 08/01/25 @ 12:53 by Poncho Wilson MD) Lesion of adrenal gland Atelectasis Bronchomalacia Asthma-COPD overlap syndrome Standard chest x-ray abnormal Chronic bronchitis Wheezing Chronic cough Surgical History (Updated 06/08/24 @ 12:55 by Rhona Ba RN) H/O colonoscopy History of foot surgery History of tonsillectomy H/O bladder repair surgery H/O hemorrhoidectomy Hx of appendectomy Social History Are you a primary manager primary care to a significant other at home: No Do you presently have visiting nurse or other home services: No Patient Tobacco Use Status: Never used Tobacco Second Hand Smoke Exposure: No Review of Systems Const Denies fever(s) Eyes Reports no additional complaints ENT Denies change in voice Card Denies chest pain Resp Denies chest congestion and Reports cough GI Reports no additional complaints Reports urinary incontinence Musc Reports no additional complaints Skin/Breast Denies rash Neuro Reports no additional complaints Barrie/Lymph Denies lymphadenopathy Aller/Immun Denies seasonal rhinorrhea Physical Exam Vital Signs: Last Vital Signs Pulse 65 08/01/25 09:54 BP 128/70 08/01/25 09:54 Pulse Ox 97 08/01/25 09:54 Oxygen Delivery Method Room Air 08/01/25 09:54 BMI result Body Mass Index 24.5 Const General: comfortable HEENT Head: Yes normocephalic Neck Neck: Yes supple Chest Chest palpation & inspection: normal inspection of the chest Resp Effort & Inspection: normal respiratory effort and no cough Auscultation: no wheezes and diminished lung sounds Cardio Heart sounds: S1 normal heart sound present and S2 normal heart sound present GI Palpation (GI): Soft to palpation Skin General skin exam: no rashes or lesions noted Extrem General: Yes no clubbing, cyanosis or edema Assessment & Plan Assessment & Plan (1) Chronic cough: Code(s): R05.3 - Chronic cough Category: Medical (2) Asthma-COPD overlap syndrome: Code(s): J44.89 - Other specified chronic obstructive pulmonary disease Category: Medical (3) Chronic bronchitis: Code(s): J42 - Unspecified chronic bronchitis Category: Medical Qualifiers: Chronic bronchitis type: mucopurulent Qualified Code(s): J41.1 - Mucopurulent chronic bronchitis (4) Bronchomalacia: Code(s): J98.09 - Other diseases of bronchus, not elsewhere classified Category: Medical (5) Lesion of adrenal gland: Code(s): E27.9 - Disorder of adrenal gland, unspecified Category: Medical Plan continue Symbicort, will decrease to daily due to osteoporosis continue Spiriva Aerobika for chest physical therapy benzonates sleep with HOB elevated, risers CT chest to readdress edrenal lesion and atelectasis exercise regimen F/U 10-12 months Orders: Orders CT chest wo IV con Today E27.9 - Disorder of adrenal gland, unspecified, J98.09 - Other diseases of bronchus, not elsewhere classified, J98.11 - Atelectasis Coding Level of Care Code Est Pt Level 4 (82029) Complex EM visit Add On G2211 Diagnoses Chronic cough R05.3 Asthma-COPD overlap syndrome J44.89 Mucopurulent chronic bronchitis J41.1 Chronic bronchitis type: mucopurulent Bronchomalacia J98.09 Lesion of adrenal gland E27.9 Time Spent (min) 17
[2025-08-01 09:54] VITALS: BP 128/70; PULSE 65; O2SAT 97; BMI 24.5
--- OUTSIDE RECORDS SUMMARY | 2025-08-01 11:18 | XMS_ITS | Encounter Summary ---
Author Organization [facility] Address [address] [place] [address] Phone Care Team Providers Care Licensed Marine Engineer Name Role Phone Pardeep Casey MD Primary Care Provider [phone] Pcp, Unknown Primary Care Provider Mindy Gilbert MD Primary Care Provider [phone] Encounter Details Date Type Department Care Team (Late st Contact Info) Description 04/16/2018 Procedure Pass OR Admitting Dept - Virtual Department [address] [place] [address] Social History Tobacco Use Types Packs/Day Years [...] on filedocumented in this encounter Care Teams Licensed Marine Engineer Relationship Specialty Start Date End Date Pardeep Casey MD [email or web address] PCP - General Internal Medicine 04/15/1805/10 Pcp, Unknown PCP - General 05/11/19 06/07/21 Mindy Jordan MD [address] [place] [id number] PCP - General Internal Medicine 06/08/21 documented as of this encounter Additional Source Comments The information contained in this document represents components of the legal health record. It is not the complete legal health record.[facility]
--- OUTSIDE RECORDS SUMMARY | 2025-08-01 11:18 | XMS_ITS | Clinical Summary ---
Author Organization [facility] Address [address] [facility] [address] [place] [address] Phone Care Team Providers Care Sewer Hand Name Role Phone Mindy Jordan MD Primary Care Provider [phone] Allergies Active Allergy Reactions Criticality Noted Date [...] PPO MEDICARE REPLACEMENT AETNA PPO [facility] AETNA [facility] MEDIC[facility] REPLACEMENT Advance Directives For more information, please contact: [phone] (9AM - 5PM [place], Tuesday-Tuesday) * Full Code (Latest Code Status on File) Date Activated Date Inactivated Comments 12/11/2021 3:11 PM Question Answer Comments Code Status Confirmed With: Patient * Full Code (Presumed) Date Activated Date Inactivated Comments 04/16/2018 3:19 AM 04/16/2018 8:06 PM Care Teams Sewer Hand Relationship Specialty Start Date End Date Mindy Jordan MD [address] [place] [id number] PCP - General Internal Medicine 06/08/21 Additional Source Comments The information contained in this document represents components of the legal health record. It is not the complete legal health record.[facility]
--- OUTSIDE RECORDS SUMMARY | 2025-08-01 11:18 | XMS_ITS | Encounter Summary ---
Author Organization [facility] Address [address] [place] [address] Phone Care Team Providers Care Nub Card Tender Name Role Phone Mindy Jordan MD Primary Care Provider [phone] Encounter Details Date Type Department Care Team (Late st Contact Info) Description 12/11/2021 Procedure Pass [facility] [address] [place] [address] Social History Tobacco Use Types Packs/Day Years [...] on filedocumented in this encounter Care Teams Nub Card Tender Relationship Specialty Start Date End Date Mindy Jordan MD [address] [place] [id number] PCP - General Internal Medicine 06/08/21 documented as of this encounter Additional Source Comments The information contained in this document represents components of the legal health record. It is not the complete legal health record.[facility]
--- OUTSIDE RECORDS SUMMARY | 2025-08-01 11:18 | XMS_ITS | Encounter Summary ---
Author Organization [facility] Address [address] [facility] [address] [place] [id number] Phone Care Team Providers Care Doughnut Icer Machine Name Role Phone Mindy Jordan MD Primary Care Provider [phone] Encounter Details Date Type Department Care Team (Latest Contact Info) Description 11/04/2021 Prep for Surgery [facility] [place] [facility] [address] [facility] [address] [place] [address] Hannah Rubin MD [address] [facility] 3 [place] [address] [email or web address] Uterovaginal prolapse (Primary Dx) Social History Tobacco [...] unspecified documented in this encounter Care Teams Doughnut Icer Machine Relationship Specialty Start Date End Date Mindy Jordan MD [address] [place] [address] [place] [address] PCP - General Internal Medicine 06/08/21 documented as of this encounter Additional Source Comments The information contained in this document represents components of the legal health record. It is not the complete legal health record.[facility]
--- OUTSIDE RECORDS SUMMARY | 2025-08-01 11:18 | XMS_ITS | Clinical Summary ---
Author Organization [address] Address [address] [place] [phone] Phone Care Team Providers Care Rn Stars Name Role Phone Howie Mustafa MD Primary [...] with meals. 180 each 3 5 Active simvastatin (ZOCOR) 20 mg tabletIndications:M ixed hyperlipidemia Take 1 tablet (20 mg total) by mouth at bedtime. 90 each 1 5 Active calcium carbonate-vitamin D 600 mg-10 mcg (400 unit) per tabletIndications:A ge-related osteoporosis without current pathological fracture TAKE 1 TABLET BY MOUTH EVERY DAY 90 tablet 1 5 Active rizatriptan (MAXALT) 10 mg tabletIndications:O ther migraine, not intractable, without status migrainosus TAKE 1 TABLET BY MOUTH EVERY DAY AND MAY REPEAT IN 2 HRS IF NEEDED 6 tablet 1 5 Active alendronate (FOSAMAX) 70 mg tablet Take 1 tablet (70 mg total) by mouth every 7 (seven) days. 1 tablet weekly on an empty stomach, remain upright for at least 30 minutes 4 each 11 5 06/26/20 26 Active Active Problems Problem Noted Date Diagnosed [...] Overview (09/10/2024): Follows with Dr Rubin in [place] Last Assessment & Plan: Reviewed options for [...] PM EDT): Stable. Continue rizatriptan as needed Encounters Date Type Department Care Team Description 07/24/2025 Results Follow-Up Adult Medicine [address] [phone] Howie Mustafa MD 06/26/2025 10:15 AM EDT Consult Endocrinology [address] [phone] Gwendolyn Wilson PA Age-related osteoporosis without current pathological fracture (Primary Dx); Screening for thyroid disorder from Last 3 Months Immunizations Immunization Administration Dates Next Due Influenza trivalent, 0.5mL ( Fluad) 65yo and older 07/08/2023,07/09/2022,08/06/2021,07/24 Influenza trivalent, 0.5mL ( Fluzone High-dose) 65yo and older 07/19/2024 Moderna SARS-CoV-2 COVID-19, mRNA, LNP-S, preservative free 05/14/2023,07/01/2022 Pneumococcal conjugate 13 va lent (Prevnar 13, PCV13) 2mo and older 06/11/2020 Pneumococcal polysaccharide 23 valent (Pneumovax 23) 2yo and older 07/09/2022 RSV, bivalent, protein subun it RSVpreF, 0.5mL, Preservative Free (Arexvy) 50yo and older 09/20/2023 Tdap Tetanus diptheria acell ular pertussis (Boostrix; Adacel) 7yo and older 12/17/2015 Zoster recombinant (Shingrix ) 19yo and older 10/14/2021,06/26/2021 Surgical History Surgery Date Site/Laterality Comments APPENDECTOMY 2018 PROCEDURE: NE APPENDECTOMY; COMMENT: emergent TONSILLECTOMY PROCEDURE: HISTORICAL TONSILLECTOMY FOOT SURGERY PROCEDURE: HISTORICAL FOOT SURGERY; COMMENT: Repair of congenital clubfoot ADENOIDECTOMY PROCEDURE: HISTORICAL ADENOIDECTOMY OTHER SURGICAL HISTORY PROCEDURE: ---- HEMORRHOIDS ---- OTHER SURGICAL HISTORY 12/2021 PROCEDURE: NE UNLISTED LAPAROSCOPY PROCEDURE UTERUS; COMMENT: ([facility]) OTHER SURGICAL HISTORY 12/2023 Left PROCEDURE: NE EXCISION MALIGNANT LESION F/E/E/N/L 0.5 CM/<; COMMENT: 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 Annual F/U Hyperlipidemia [...] care for your loved ones. For example, children's author or elderly care for an older adult? [...] Date Recorded What is your living situation? Unrecognized valu e 01/03/2025 Comments No Sex and Gender Information [...] Sign Reading Time Taken Comments Blood Pressure 135/69 06/26/2025 10:42 AM EDT Pulse 66 06/26/2025 10:42 AM EDT Temperature 36.6 C (97.8 F) 06/26/2025 10:42 AM EDT Respiratory Rate 14 01/10/2025 9:42 AM EDT Oxygen Saturation - - Inhaled Oxygen Concentration - - Weight 56.6 kg (124 lb 12.8 oz) 025 10:42 AM EDT Height 152.4 cm (5') 06/26/2025 10:42 AM EDT Body Mass Index 24.37 06/26/2025 10:42 AM EDT Plan of Treatment Upcoming Encounters Date Type Department Care Team (Late st Contact Info) Description 08/23/2025 9:00 AM EST Office Visit Adult Medicine [place] - [address] [phone] Howie Mustafa MD [address] [place] [address] 12/11/2025 11:30 AM EST Office Visit Urogynecology - [address] [phone] Shahnaz Winston MD [address] [facility] [address] [place] [address] 06/26/2026 10:00 AM EDT Office Visit Endocrinology - [address] [phone] Gwendolyn Wilson PA [address] [place] [address] Health Maintenance Due Date Last Done Comments Medicare Annual Wellness Visit 09/18/2022 Influenza Vaccine (#1) 2025 , 07/08/2023, 07/09/2022, Additional history exists COVID-19 Vaccine (10 - Pfizer risk season) 2025 01/07/2025, 07/03/2024, 10/13/2023, Additional history exists DTaP,Tdap,and Td Vaccines (2 - Td or Tdap) 12/16/2025 12/17/2015 Social Influencers of Health Screening 01/03/2026 01/03/2025 Falls Risk Assessment 01/10/2026 01/10/2025, 024 Breast Cancer Screening 02/21/2027 02/22/20, 02/09/2024, 02/09/2024, Additional history exists Colorectal Cancer Screening: FIT-DNA (Cologuard) 07/09/2028 07/09/2025 Cholesterol Screening (Lipid Panel) 12/25/2029 12/25/2024, 09/11/2024, 02/16/2024, Additional history exists Osteoporosis Screening (Bone Density Screening) 03/13/2035 03/13/2025, 02/14/2023, 10/22/2020 Colorectal Cancer Screening: Colonoscopy Discontinued 12/04/2018 Hepatitis C Screening Completed 07/18/2020 Zoster Vaccines [...] Procedure Name Priority Date/Time Associated Diagnosis Comments EXTERNAL COLOGUARD (FIT-DNA) REPORT 07/09/2025 NE PROTEIN ELECTROPHORETIC FRACTIONATION & QUANTITATION SERUM Routine 06/26/2025 11:22 AM EDT Age-related osteoporosis without current pathological fracture PROTEIN, TOTAL Routine 06/26/2025 11:22 AM EDT Age-related osteoporosis without current pathological fracture GLIADIN ANTIBODIES, SERUM Routine 06/26/2025 11:22 AM EDT Age-related osteoporosis without current pathological fracture ENDOMYSIAL ANTIBODY, IGA Routine 06/26/2025 11:22 AM EDT Age-related osteoporosis without current pathological fracture TISSUE TRANSGLUTAMINASE, IGA Routine 06/26/2025 11:22 AM EDT Age-related osteoporosis without current pathological fracture IMMUNOGLOBULIN IGA Routine 06/26/2025 11 :22 AM EDT Age-related osteoporosis without current pathological fracture VITAMIN D 25 HYDROXY Routine 06/26/2025 11:22 AM EDT Age-related osteoporosis without current pathological fracture PARATHYROID HORMONE INTACT Routine 06/26/2025 11:22 AM EDT Age-related osteoporosis without current pathological fracture PHOSPHORUS Routine 06/26/2025 11:22 AM EDT Age-related osteoporosis without current pathological fracture COMPREHENSIVE METABOLIC PANEL Routine 06/26/2025 11:22 AM EDT Age-related osteoporosis without current pathological fracture IMMUNOGLOBULIN IGA Routine 06/26/2025 11 :22 AM EDT Age-related osteoporosis without current pathological fracture PROTEIN ELECTROPHORESIS, SERUM Routine 06/26/2025 11:22 AM EDT Age-related osteoporosis without current pathological fracture THYROID STIMULATING HORMONE WITH REFLEX TO FREE T4 AND FREE T3 Routine 06/26/2025 11:22 AM EDT Screening for thyroid disorder COLLAGEN TYPE 1, C-TELOPEPTIDE Routine 06/26/2025 11:22 AM EDT Age-related osteoporosis without current pathological fracture BD BONE DENSITY DXA AXIAL SKELETON Routine [...] Recently Relevant to Health Maintenance Results * External Cologuard (FIT-DNA) Report (07/09/2025) us Provider [facility] BODY FLUIDS AND STOO LS ORDERABLES Final Result * PATHOLOGIST REVIEW PROTEIN ELECTROPHORESIS (06/26/2025 11:22 AM EDT) Pathologist Interpretation Reviewed by Ingris Arana MD 06/27/2025 3:09 PM EDT [facility] Blood Venous blood specimen / Unknown Venipuncture / Unknown 06/26/2025 11:22 AM EDT 06/26/2025 11:23 AM EDT Gwendolyn CAMPBELL LAB BLOOD ORDERABLES Final Result [facility] [address] [place] [address], [place] [phone] * Thyroid stimulating hormone with reflex to free t4 and free t3 (06/26/2025 11:22 AM EDT) Pathologist [facility] TSH 1.82 0.40 - 4.00 mcIU/mL LAB CHEMISTRY METHOD 06/26/2025 4:51 PM EDT [facility] Blood Venous blood specimen / Unknown Venipuncture / Unknown 06/26/2025 11:22 AM EDT 06/26/2025 11:23 AM EDT Gwendolyn CAMPBELL LAB BLOOD ORDERABLES Final Result [facility] [address] [place] [address], [place] [phone] * Endomysial antibody, IgA (06/26/2025 11:22 AM EDT) Pathologist [facility] Endomysial IgA Negative Negative 06/27/2025 2:03 PM EDT [facility] Blood Venous blood specimen / Unknown Venipuncture / Unknown 06/26/2025 11:22 AM EDT 06/26/2025 11:23 AM EDT Gwendolyn CAMPBELL LAB BLOOD ORDERABLES Final Result [facility] [address] [place] [address], [place] [phone] * Collagen type 1, c-telopeptide (06/26/2025 11:22 AM EDT) Pathologist [facility] Collagen Type 1, C-Telopeptide (CTx) 300 pg/mL 07/02/2025 2:51 PM EDT [facility] Comment: Reference Range for Females Premenopausal 121-747 pg/mL Postmenopausal 189-1003 pg/mL The assay and reference ranges were updated by the aboriginal ceremonial celebrant, with new methodology effective November 20, 2024. Providers should consider this when comparing measurements before and after November 20, 2024 in the same patient. Test performed at [facility], [address] , [place] [address] Gail Arreola MD, PhD - Business Analyst Blood Venous blood specimen / Unknown Venipuncture / Unknown 06/26/2025 11:22 AM EDT 06/26/2025 11:23 AM EDT us Gwendolyn CAMPBELL LAB BLOOD ORDERABLES Final Result [facility] [address] [place] [address] * Gliadin antibodies, serum (06/26/2025 11:22 AM EDT) Gliadin IgA 2 <20 units LAB CHEMISTRY METHOD 07/03/2025 10:51 AM EDT [facility] Gliadin IgG 2 <20 units LAB CHEMISTRY METHOD 07/03/2025 10:51 AM EDT [facility] Gliadin IgA Antibody Negative Negative LAB CHEMISTRY METHOD 07/03/2025 10:51 AM EDT [facility] Gliadin IgG Antibody Negative Negative LAB CHEMISTRY METHOD 07/03/2025 10:51 AM EDT [facility] Blood Venous blood specimen / Unknown Venipuncture / Unknown 06/26/2025 11:22 AM EDT 06/26/2025 11:23 AM EDT us Gwendolyn CAMPBELL LAB BLOOD ORDERABLES Final Result [facility] [address] [place] [address], [place] [phone] * Tissue transglutaminase, IgA (06/26/2025 11:22 AM EDT) Tissue Transglutaminase Ab, IgA Quant 0 <4 unit/mL LAB CHEMISTRY METHOD 07/03/2025 10:40 AM EDT [facility] Tissue Transglutaminase Ab, IgA Negative Negative LAB CHEMISTRY METHOD 07/03/2025 10:40 AM EDT [facility] Blood Venous blood specimen / Unknown Venipuncture / Unknown 06/26/2025 11:22 AM EDT 06/26/2025 11:23 AM EDT Gwendolyn CAMPBELL LAB BLOOD ORDERABLES Final Result Performing Organization Address [facility]/ZIP Co de Phone Number [facility] [address] [place] [address], [place] [phone] * Vitamin D 25 hydroxy (06/26/2025 11:22 AM EDT) [facility] Vit D, 25-Hydroxy 47.6 30.0 - 80.0 ng/mL LAB CHEMISTRY METHOD 06/26/2025 4:24 PM EDT [facility] Blood Venous blood specimen / Unknown Venipuncture / Unknown 06/26/2025 11:22 AM EDT 06/26/2025 11:23 AM EDT Gwendolyn CAMPBELL LAB BLOOD ORDERABLES Final Result Performing Organization Address [facility] de Phone Number [facility] [address] [place] [address], [place] [phone] * (ABNORMAL) Protein electrophoresis, serum (06/26/2025 11:22 AM EDT) [facility] Total Protein 7.4 6.0 - 8.0 g/dL LAB CHEMISTRY METHOD 06/27/2025 3:09 PM EDT [facility] Albumin, Serum 4.4(H) 2.9 - 4.1 g/dL LAB CHEMISTRY METHOD 06/27/2025 3:09 PM EDT [facility] Alpha 1 Globulin (g/dL) 0.2 0.1 - 0.5 g/dL LAB CHEMISTRY METHOD 06/27/2025 3:09 PM EDT [facility] Alpha 2 Globulin (g/dL) 1.1 0.7 - 1.5 g/dL LAB CHEMISTRY METHOD 06/27/2025 3:09 PM EDT [facility] Beta (g/dL) 0.9 0.7 - 1.5 g/dL LAB CHEMISTRY METHOD 06/27/2025 3:09 PM EDT [facility] Gamma Globulin (g/dL) 0.8 0.7 - 1.9 g/dL LAB CHEMISTRY METHOD 06/27/2025 3:09 PM EDT [facility] SPEP Interpretation No M-Jarocho seen. Increased levels of albumin may be seen in acute dehydration. LAB CHEMISTRY METHOD 06/27/2025 3:09 PM EDT [facility] Blood Venous blood specimen / Unknown Venipuncture / Unknown 06/26/2025 11:22 AM EDT 06/26/2025 11:23 AM EDT us Gwendolyn CAMPBELL LAB BLOOD ORDERABLES Final Result Performing Organization Address City/[facility]/ZIP Co de Phone Number [facility] [address] [place] [address], [place] [phone] * Protein, total (06/26/2025 11:22 AM EDT) Total Protein 7.4 6.0 - 8.0 g/dL LAB CHEMISTRY METHOD 06/26/2025 5:11 PM EDT [facility] Blood Venous blood specimen / Unknown Venipuncture / Unknown 06/26/2025 11:22 AM EDT 06/26/2025 11:23 AM EDT us Gwendolyn CAMPBELL LAB BLOOD ORDERABLES Final Result [facility] [address] [place] [address], [place] [phone] * Phosphorus (06/26/2025 11:22 AM EDT) Phosphorus 3.6 2.5 - 4.5 mg/dL LAB CHEMISTRY METHOD 06/26/2025 3:56 PM EDT [facility] Blood Venous blood specimen / Unknown Venipuncture / Unknown 06/26/2025 11:22 AM EDT 06/26/2025 11:23 AM EDT Gwendolyn CAMPBELL LAB BLOOD ORDERABLES Final Result [facility] [address] [place] [address], [place] [phone] * Parathyroid hormone intact (06/26/2025 11:22 AM EDT) PTH 75.2 18.5 - 88.0 pcg/mL LAB CHEMISTRY METHOD 06/26/2025 4:25 PM EDT [facility] Blood Venous blood specimen / Unknown Venipuncture / Unknown 06/26/2025 11:22 AM EDT 06/26/2025 11:23 AM EDT Gwendolyn CAMPBELL LAB BLOOD ORDERABLES Final Result [facility] [address] [place] [address], [place] [phone] * Immunoglobulin IgA (06/26/2025 11:22 AM EDT) IgA 96 61 - 348 mg/dL LAB CHEMISTRY METHOD 06/26/2025 4:02 PM EDT [facility] Blood Venous blood specimen / Unknown Venipuncture / Unknown 06/26/2025 11:22 AM EDT 06/26/2025 11:23 AM EDT Gwendolyn CAMPBELL LAB BLOOD ORDERABLES Final Result [facility] [address] [place] [address], [place] [phone] * (ABNORMAL) Comprehensive metabolic panel (06/26/2025 11:22 AM EDT) Sodium 144 133 - 145 mmol/L LAB CHEMISTRY METHOD 06/26/2025 4:02 PM [facility] Potassium 4.3 3.5 - 5.5 mmol/L LAB CHEMISTRY METHOD 06/26/2025 4:02 PM [facility] Chloride 108 96 - 110 mmol/L LAB CHEMISTRY METHOD 06/26/2025 4:02 PM [facility] CO2 33(H) 21 - 32 mmol/L LAB CHEMISTRY METHOD 06/26/2025 4:02 PM [facility] Anion Gap 3 3 - 11 LAB CHEMISTRY METHOD 06/26/2025 4:02 PM [facility] Glucose 80 70 - 100 mg/dL LAB CHEMISTRY METHOD 06/26/2025 4:02 PM [facility] BUN 10 5 - 25 mg/dL LAB CHEMISTRY METHOD 06/26/2025 4:02 PM [facility] Creatinine 0.71 0.50 - 1.10 mg/dL LAB CHEMISTRY METHOD 06/26/2025 4:02 PM [facility] eGFR 91 >=60 mL/min/1. 73m2 LAB CHEMISTRY METHOD 06/26/2025 4:02 PM [facility] Comment:Calculation based on the Chronic Kidney Disease Epidemiology Collaboration (CKD-EPI) equation refit without adjustment for race. BUN/Creatinine Ratio 14.1 LAB CHEMISTRY METHOD 06/26/2025 4:02 PM [facility] Calcium 9.4 8.5 - 10.5 mg/dL LAB CHEMISTRY METHOD 06/26/2025 4:02 PM [facility] AST (SGOT) 18 10 - 42 unit/L LAB CHEMISTRY METHOD 06/26/2025 4:02 PM EDT [facility] ALT (SGPT) 21 10 - 60 unit/L LAB CHEMISTRY METHOD 06/26/2025 4:02 PM EDT [facility] Alkaline Phosphatase 82 42 - 121 unit/L LAB CHEMISTRY METHOD 06/26/2025 4:02 PM EDT [facility] Total Protein 7.4 6.0 - 8.0 g/dL LAB CHEMISTRY METHOD 06/26/2025 4:02 PM EDT [facility] Albumin 4.4 3.2 - 5.0 g/dL LAB CHEMISTRY METHOD 06/26/2025 4:02 PM EDT [facility] Total Bilirubin 0.4 0.0 - 1.4 mg/dL LAB CHEMISTRY METHOD 06/26/2025 4:02 PM EDT [facility] Blood Venous blood specimen / Unknown Venipuncture / Unknown 06/26/2025 11:22 AM EDT 06/26/2025 11:23 AM EDT us Gwendolyn CAMPBELL LAB BLOOD ORDERABLES Final Result [facility] [address] [place] [address], * BD Bone Density DXA Axial Skeleton (03/13/2025 1:16 PM EDT) Anatomical Region Laterality Modality Wrist, Hip, L-spine Bone Densito metry 03/13/2025 1:33 PM EDT Impressions 03/13/2025 1:35 PM EDT Osteoporosis by WHO criteria. The [facility] Department of Internal Medicine recommends using [...] alternative screening schedule based on candida [place]., [facility] October 28, 2011 for patients with osteopenia [...] Signed Date: 03/13/2025 13:35 ET Workstation ID: [id number] Transcribed By: Self Edit Transcribed Date: 03/13/2025 [...] density. IMPRESSION: Osteoporosis by WHO criteria. The [facility] Department of Internal Medicine recommendsusing National [...] screening schedule based on maury Grande al., NEJMJanuary 2011 for patients with osteopenia (based on [...] Signed Date: 03/13/2025 13:35 ET Workstation ID: [id number] Transcribed By: Self Edit Transcribed Date: 03/13/2025 13:33 ET Howie Mustafa MD IMG DXA PROCEDUR ES Final Result * MG [...] is recommended in 1 year. MAMMO LOCATION: [facility], [address] [place] [address], [id number], . -------- FINAL REPORT -------- Dictated By: Vandana Vega Dictated Date: 02/22/2025 07:45 ET Assigned Physician: Vandana Vega Reviewed and Electronically Signed By: Vandana Vega Signed Date: 02/22/2025 07:46 ET Workstation ID: [id number] Transcribed By: Self Edit Transcribed Date: 02/22/2025 [...] is recommended in 1 year. MAMMO LOCATION: [facility], [address] [place] [address], [id number], . -------- FINAL REPORT -------- Dictated By: Vandana Vega Dictated Date: 02/22/2025 07:45 ET Assigned Physician: Vandana Vega Reviewed and Electronically Signed By: Vandana Vega Signed Date: 02/22/2025 07:46 ET Workstation ID: [id number] Transcribed By: Self Edit Transcribed Date: 02/22/2025 07:45 ET Howie Mustafa MD IMG BI PROCEDURE S Final Result * Lipid panel with reflex to direct LDL (12/25/2024 8:39 AM EDT) Cholesterol 167 0 - 200 mg/dL LAB CHEMISTRY METHOD 12/25/2024 11:16 AM EDT [facility] Triglycerides 96 0 - 150 mg/dL LAB CHEMISTRY METHOD 12/25/2024 11:16 AM EDT [facility] HDL 80 >=40 mg/dL LAB CHEMISTRY METHOD 12/25/2024 11:16 AM EDT [facility] LDL Calculated 68 0 - 100 mg/dL LAB CHEMISTRY METHOD 12/25/2024 11:16 AM EDT [facility] VLDL Cholesterol Anand 19.2 mg/dL LAB CHEMISTRY METHOD 12/25/2024 11:16 AM EDT [facility] Non HDL Chol. (LDL+VLDL) 87 <145 mg/dL LAB CHEMISTRY METHOD 12/25/2024 11:16 AM EDT [facility] Chol/HDL Ratio 2.1 0.0 - 4.4 LAB CHEMISTRY METHOD 12/25/2024 11:16 AM EDT [facility] Blood Venous blood specimen / Unknown Venipuncture / Unknown 12/25/2024 8:39 AM EDT 12/25/2024 8:39 AM EDT Howie Mustafa MD LAB BLOOD ORDERA BLES Final Result [facility] [address] [place] [address], * Falls Risk Assessment (07/12/2024) [facility] Falls Risk Assessment abstracted Historical Provider HEALTH MAINTENANCE Final Result * Depression Screening (01/11/2024) Pathologist [facility] Depression Screening abstracted [facility] Provider HEALTH MAINTENANCE Final Result * Hepatitis C Screening (07/18/2020) Pathologist [facility] Hepatitis C Screening abstracted Historical Provider HEALTH MAINTENANCE Final Result * Colonoscopy (12/04/2018) Pathologist [facility] Colonoscopy no interpretation , abstracted Anatomical Region Laterality Modality Other Historical Provider HEALTH MAINTENANCE Final Result from Last 3 Months or Most Recently Relevant to Health Maintenance Insurance [employer] MEDICARE ADVANTAGE Care Teams Rn Stars Relationship Specialty Start Date End Date Howie Mustafa MD [address] [facility], [place] PCP - General Internal Medicine 07/09/22
--- OUTSIDE RECORDS SUMMARY | 2025-08-01 11:18 | XMS_ITS | Encounter Summary ---
Author Organization [facility] Address [facility] [address] [place] [address] Phone Care Team Providers Care Nursing Project Coordinator Name Role Phone Padreep Casey MD Primary Care Provider [phone] Pcp, Unknown Primary Care Provider Mindy Gilbert MD Primary Care Provider [phone] Encounter Details Date Type Department Care Team (Late st Contact Info) Description 04/15/2018 Procedure Pass [facility], Ct Scan - [address] [address] Social History Tobacco Use Types Packs/Day Years [...] on filedocumented in this encounter Care Teams Nursing Project Coordinator Relationship Specialty Start Date End Date Pardeep Casey MD [email or web address] PCP - General Internal Medicine 04/15/1805/10 Pcp, Unknown PCP - General 05/11/19 06/07/21 Mindy Jordan MD [address] [place] [id number] PCP - General Internal Medicine 06/08/21 documented as of this encounter Additional Source Comments The information contained in this document represents components of the legal health record. It is not the complete legal health record.[facility]
--- OUTSIDE RECORDS SUMMARY | 2025-08-01 11:18 | XMS_ITS | Clinical Summary ---
Author Organization [facility] Address [address] [place] [address] Care Team Providers Care Care Transport Nurse Name Role Phone Unavailable Primary Care Provider Unavailabl e Encounters Date Type Department Care Team Description 05/16/2025 Orders Only [facility] [address] [place] [phone] Benita Flanagan PA-C from Last 3 Months [...] COVID-19 Vaccine ( - 2023-2 5 season) 2025 RSV Vaccine 50 years and old er and Patients (1 [...] your patient to us, Gen Pace MD [id number] (Electronically Signed - 05/16/2025 15:40) Copy: PROVIDER [...] Pace MD 05/16/2025 03:40 PM EDT RPWorkstation: [id number] Thank you for referring your patient to us, Gen Pace MD [phone] (Electronically Signed - 05/16/2025 15:40) Copy: PROVIDER NOT IN DICTIONARY , us Benita Flanagan PA-C [facility] PROCEDURES Final R esult from Last 3 Months
--- OUTSIDE RECORDS SUMMARY | 2025-08-01 11:19 | XMS_ITS | Encounter Summary ---
Author Organization [facility] Address [address] [place] [address] Care Team Providers Care Telemetry Tech Name Role Phone Howie Mustafa MD Primary Care Pr ovid Encounter Details Date Type Department Care Team (Late st Contact Info) Description 07/24/2025 Results Follow-Up Adult Medicine [address] [phone] Howie Mustafa MD [address] [place] [address] Social History Tobacco Use Types Packs/Day Years Used Date Smoking Tobacco: Never Smokeless Tobacco: Never Alcohol Use Standard Drinks/Week Comments Yes 0 [...] care for your loved ones. For example, childhood teacher or elderly care for an older adult? [...] on file Sexual Orientation Not on file documented as of this encounter Plan of Treatment Upcoming Encounters Date Type Department Care Team (Late st Contact Info) Description 08/23/2025 9:00 AM EST Office Visit Adult Medicine [address] [phone] Howie Mustafa MD [address] [place] [address] 12/11/2025 11:30 AM EST Office Visit Urogynecology - [place] [address] [place] [address] Shahnaz Winston MD [address] [facility] [address] [place] [address] 06/26/2026 10:00 AM EDT Office Visit Endocrinology - [address] [phone] Gwendolyn Wilson PA [address] [place] [address] documented as of this encounter Visit Diagnoses Not on filedocumented in this encounter Additional Health Concerns Assessment Noted Time PHQ-9 Depression Total Score: 0 01/04/20 25 1:15 PM EDT documented as of this encounter Care Teams Telemetry Tech Relationship Specialty Start Date End Date Howie Mustafa MD [address] [facility], [place] PCP - General Internal Medicine 07/09/22 documented as of this encounter
== END 2025-08-01 10:25 | disposition home or self-care (01) ==
LOC: HO.HPS 09:51
PROVIDERS: PCP Family Medicine; Visit Provider Hospitalist
DX: R05.3 Chronic cough (principal); J44.89 Other specified chronic obstructive pulmonary disease; J41.1 Mucopurulent chronic bronchitis; J98.09 Other diseases of bronchus, not elsewhere classified; E27.9 Disorder of adrenal gland, unspecified
CPT/HCPCS: 99214; G2211

== ENCOUNTER → 2025-08-01 09:50 | Outpatient (BNVA) | payer MEDICARE, SELFPAY | PROVIDERS: PCP Family Medicine; Visit Provider Hospitalist | DX: R05.3 Chronic cough (principal); J44.89 Other specified chronic obstructive pulmonary disease; J41.1 Mucopurulent chronic bronchitis; E27.9 Disorder of adrenal gland, unspecified; J98.09 Other diseases of bronchus, not elsewhere classified | CPT/HCPCS: 99212 ==